=== PATIENT | female | born 1990 | race Two or more races ===

== ENCOUNTER 2020-04-02 21:32 | Emergency (ER) | payer OTHER, SELFPAY ==
[2020-04-02 21:42] VITALS: BP 132/77; PULSE 105; RESP 16; TEMP 36.8; O2SAT 99; BMI 30.2
--- NOTE | 2020-04-02 22:01 | XR_ITS ---
EXAMINATION: XR ABDOMEN KUB CLINICAL INDICATION: Evaluate stool burden COMPARISON: KUB 01/18/2020 TECHNIQUE: AP view of the abdomen. FINDINGS: The left ureteral stent with its proximal end in the kidney pelvis and the distal end in the bladder. There are 2 radiopaque densities seen in the midpole left kidney similar to previous study. There is moderate stool in the colon without distention. No organomegaly. There is mild levoscoliosis at dorsolumbar junction. IMPRESSION: Mild constipation. No change in left internal ureteral stent and 2 small radiopaque disc series in the midpole left kidney from 01/18/2020. Mild levoscoliosis at dorsolumbar junction, slightly more prominent than 01/18/2020.
--- NOTE | 2020-04-02 22:07 | ED.ABDPAIN ---
HPI - Abdominal Pain General Chief Complaint: Abdominal Pain Stated Complaint: nausea constipation Time Seen by Provider: 04/02/20 21:51 Source: patient Mode of arrival: ambulatory Limitations: no limitations History of Present Illness HPI narrative: 29-year-old female with a past history of renal colic here with abdominal pain for last 2 weeks. The patient tells me she has pain in the middle of her abdomen and is intermittent. She has some associated nausea with no vomiting at times. She also complaining of constipation and only able to have small hard bowel movements at times. Taking prune juice with no relief. No fevers, chills or urinary symptoms. MD elicited complaint: abdominal pain Onset (ago): week(s) (2 weeks ) Pain Consistency: intermittent Location: diffuse Severity: mild Quality: cramping Radiation: none Migration to: no migration Exacerbating factors: nothing Relieving factors: nothing Associated symptoms: denies other symptoms Related Data Previous Rx's Medication Instructions Recorded ketorolac 10 mg PO Q8H PRN 1 Days #10 tab 04/03/20 levofloxacin 750 mg PO DAILY 4 Days #4 tab 04/03/20 tamsulosin [Flomax] 0.4 mg PO DAILY #10 cap 04/03/20 Allergies Allergy/AdvReac Type Severity Reaction Status Date / Time codeine [CODEINE] Allergy Severe URINARY Unverified 03/01/20 18:04 RETENTION codeine AdvReac Unknown Uncoded 12/01/13 00:00 Review of Systems Review of Systems Yes all other systems are reviewed and are negative Constitutional: Reports no additional constitutional complaints, Denies body ache(s), Denies chills, Denies fever(s), Denies headache(s) and Denies weakness Eyes: Reports no additional eye complaints and Denies change in vision Reports system reviewed and no additional complaints, except as documented, Denies dizziness, Denies headache(s), Denies nasal congestion, Denies nasal discharge and Denies neck pain Cardiovascular: Reports no additional cardiovascular complaints, Denies chest pain, Denies leg edema and Denies dyspnea Respiratory: Reports no additional respiratory complaints, Denies cough and Denies dyspnea Gastrointestinal: Reports no additional gastrointestinal complaints, Reports abdominal pain, Reports constipation, Denies diarrhea, Reports nausea and Denies vomiting Genitourinary: Reports no additional female genitourinary complaints and Denies urinary incontinence Musculoskeletal: Reports no additional musculoskeletal complaints, Denies back pain, Denies arthralgias, Denies joint swelling, Denies neck pain, Denies numbness and Denies tingling Skin/Breast: Reports system reviewed and no additional complaints, except as docu and Denies rash Reports system reviewed and no additional complaints, except as documented, Denies Abnormal speech present, Denies dizziness, Denies headache(s), Denies numbness, Denies tingling and Denies weakness Physical Exam Vital Signs: Vital Signs: Vital Signs Temp Pulse Resp BP Pulse Ox 04/03/20 01:12 98.4 F 97 16 106/64 99 04/02/20 23:58 98.3 F 97 18 110/66 99 04/02/20 21:42 98.2 F 105 H 16 132/77 99 Body Mass Index 30.2 Const: General: cooperative, healthy appearing, comfortable and no acute distress Orientation/consciousness: patient oriented x3 Limitations: no limitations HENMT: Head: Yes normal to inspection Ears: hearing grossly normal bilaterally General nose exam: Normal external nose present Face and sinus: Yes normal facial exam Mouth: Normal oral and palatal mucosa present Throat: Yes posterior oropharynx normal Eyes: General: appearance normal, both eyes and all related structures Pupils: Equal, round and reactive pupils present Neck: Neck: Yes normal visual inspection Chest: Chest palpation & inspection: normal inspection of the chest Resp: Effort & Inspection: normal respiratory effort Auscultation: clear to auscultation bilaterally Cardio: Rate: regular rate Rhythm: regular rhythm Peripheral pulses: Peripheral pulses 2+ throughout GI: Other: no focal tenderness Inspection: Yes normal to inspection Palpation (GI): Soft to palpation and nontender Auscultation: normal bowel sounds Back/Spine/Pelvis: Thoracic/Lumbar Spine: thoracic and lumbar spine normal to inspection Skin: General skin exam: no rashes or lesions noted Neuro: General: patient oriented x3, no focal motor deficits and normal sensation to monofilament Cranial nerves: Yes Equal, round and reactive pupils present Cognition (Neuro): normal cognition Speech: No Abnormal speech present Gait exam (Neuro): Normal gait present Motor exam (neuro): 5/5 motor strength present throughout Extrem: General: Yes normal to inspection Course Course Course Narrative: 29-year-old female here with abdominal pain, constipation and nausea. Will check labs, UA, urine and KUB. 0000- UA shows microscopic hematuria and leuks, KUB shows moderate constipation. Labs show mild leukocytosis with no shift. Will check CT abdomen and pelvis. 0130- CT shows left ureteral stent with moderate hydronephrosis which appears unchanged from previous. Patient was given a dose of antibiotics here in the emergency department for presumed UTI. Will refer her back to urology for follow-up due to pain. Reviewed worrisome signs and symptoms of when to return to the emergency department. Comfortable discharge home. MDM - Abdominal Pain Medical Records Attestation: I reviewed the patient's medical records. Lab Data Attestation: I reviewed the patient's lab results. Result diagrams: 04/02/20 22:21 04/02/20 22:21 Labs: Lab Results 04/02/20 04/02/20 04/02/20 Range/Units 22:21 22:21 22:21 WBC 13.9 H (4.8-10.8) X10*3/uL RBC 4.28 (4.20-5.50) X10*6/uL Hgb 11.5 L (12.0-16.0) g/dl Hct 37.0 (37-47) % MCV 86.4 (80-98) fL MCH 26.9 L (27.0-33.0) pg MCHC 31.1 (31.0-35.0) g/dl RDW 13.4 (11.0-16.0) % Plt Count 415 H (160-400) X10*3/uL MPV 9.2 L (9.4-12.3) fL Immature Gran % (Auto) 0.4 (0.0-0.4) % Neut % (Auto) 66.5 (45-73) % Lymph % (Auto) 24.0 (20-40) % Lenoir % (Auto) 5.8 (2-11) % Eos % (Auto) 2.8 (0-4) % Baso % (Auto) 0.5 (0-2) % Lymph # (Auto) 3.3 (1.2-4.9) X10*3/uL [place] # (Auto) 0.8 (0.1-1.2) X10*3/uL Eos # (Auto) 0.4 (0.0-0.4) X10*3/uL Baso # (Auto) 0.1 (0.0-0.2) X10*3/uL Abs Immat Gran (auto) 0.05 H (0.00-0.03) X10*3/uL Absolute Neuts (auto) 9.2 H (2.0-8.3) X10*3/uL Absolute Nucleated RBC 0.000 (0.0-0.012) X10*3/uL Nucleated RBC % (auto) 0.0 (0.0-0.2) /100WBC Hold Blue Top SEE NOTE Sodium 136 (135-145) mmol/L Potassium 4.1 (3.3-5.1) mmol/l Chloride 103 (96-108) mmol/L Carbon Dioxide 25 (22-29) mmol/L Anion Gap 12 (12-20) BUN 15 (9-16) mg/dL Creatinine 0.68 (0.5-1.4) mg/dL Estim Creat Clear Calc 108.7 Estimated GFR > 60 Random Glucose 93 (60-115) mg/dL Calcium 8.5 (8.4-10.2) mg/dL Magnesium 1.9 (1.6-2.6) mg/dL Total Bilirubin 0.5 (0.0-1.0) mg/dL Direct Bilirubin 0.2 (0.0-0.5) mg/dL AST 17 (5-31) U/L ALT 20 (0-31) U/L Alkaline Phosphatase 75 (39-117) U/L Total Protein 7.3 (6.5-8.0) g/dL Albumin 4.1 (3.5-5.0) g/dL Urine Color Urine Appearance Urine pH (5.0-8.0) Ur Specific Cotton (1.005-1.025) Urine Protein (NEG-TRACE) MG/DL Urine Glucose (UA) (NEG) MG/DL Urine Ketones (NEG) MG/DL Urine Blood (NEG) Urine Nitrite (NEG) Ur Leukocyte Esterase (NEG) Urine RBC (0) /HPF Urine WBC (0-4) /HPF Ur Squamous Epith Cells /LPF Urine Bacteria /LPF Urine Test (NEGATIVE) 04/02/20 Range/Units 22:45 WBC (4.8-10.8) X10*3/uL RBC (4.20-5.50) X10*6/uL Hgb (12.0-16.0) g/dl Hct (37-47) % MCV (80-98) fL MCH (27.0-33.0) pg MCHC (31.0-35.0) g/dl RDW (11.0-16.0) % Plt Count (160-400) X10*3/uL MPV (9.4-12.3) fL Immature Gran % (Auto) (0.0-0.4) % Neut % (Auto) (45-73) % Lymph % (Auto) (20-40) % Lenoir % (Auto) (2-11) % Eos % (Auto) (0-4) % Baso % (Auto) (0-2) % Lymph # (Auto) (1.2-4.9) X10*3/uL [place] # (Auto) (0.1-1.2) X10*3/uL Eos # (Auto) (0.0-0.4) X10*3/uL Baso # (Auto) (0.0-0.2) X10*3/uL Abs Immat Gran (auto) (0.00-0.03) X10*3/uL Absolute Neuts (auto) (2.0-8.3) X10*3/uL Absolute Nucleated RBC (0.0-0.012) X10*3/uL Nucleated RBC % (auto) (0.0-0.2) /100WBC Hold Blue Top Sodium (135-145) mmol/L Potassium (3.3-5.1) mmol/l Chloride (96-108) mmol/L Carbon Dioxide (22-29) mmol/L Anion Gap (12-20) BUN (9-16) mg/dL Creatinine (0.5-1.4) mg/dL Estim Creat Clear Calc Estimated GFR Random Glucose (60-115) mg/dL Calcium (8.4-10.2) mg/dL Magnesium (1.6-2.6) mg/dL Total Bilirubin (0.0-1.0) mg/dL Direct Bilirubin (0.0-0.5) mg/dL AST (5-31) U/L ALT (0-31) U/L Alkaline Phosphatase (39-117) U/L Total Protein (6.5-8.0) g/dL Albumin (3.5-5.0) g/dL Urine Color YELLOW Urine Appearance CLOUDY Urine pH 6.0 (5.0-8.0) Ur Specific Cotton 1.015 (1.005-1.025) Urine Protein 1+ H (NEG-TRACE) MG/DL Urine Glucose (UA) NEG (NEG) MG/DL Urine Ketones NEG (NEG) MG/DL Urine Blood 3+ H (NEG) Urine Nitrite NEG (NEG) Ur Leukocyte Esterase 1+ H (NEG) Urine RBC 50-75 H (0) /HPF Urine WBC 1-4 (0-4) /HPF Ur Squamous Epith Cells TRACE /LPF Urine Bacteria TRACE /LPF Urine Test NEGATIVE (NEGATIVE) Imaging Data CT scan - abdomen: Attestation: I personally reviewed and interpreted this imaging study as follows: My impression: IMPRESSION: 1. Left ureteral stent in place. Mild to moderate left hydronephrosis as well as stranding around the renal pelvis and proximal to mid ureter, similar to prior. 2. Redemonstrated multiple bilateral renal calculi. No right hydronephrosis. Radiologist's impression: EXAMINATION: CT ABDOMEN AND PELVIS WITHOUT CONTRAST CLINICAL INFORMATION: Hematuria, abdominal pain, history of renal colic with stent COMPARISON: 01/07/2020 TECHNIQUE: Multidetector volumetric imaging was performed from the superior aspect of the liver through the pubic symphysis. Sagittal and coronal reformatted images were obtained on the technologist's workstation. This CT examination was performed using dose optimization techniques as appropriate, variously including the following: *Automated exposure control *Adjustment of mA and/or kV according to patient size (this includes techniques or standardized protocols for targeted exams where dose is matched to indication/reason for exam; i.e. extremities or head) *Use of iterative reconstruction technique DLP: 543 mGy-cm FINDINGS: LUNG BASES: The visualized lung bases are unremarkable. LIVER, GALLBLADDER, AND BILIARY TREE: The liver is normal in size, shape, and attenuation. No focal hepatic lesion or biliary ductal dilatation is present. The gallbladder is unremarkable with no evidence of radiopaque gallstones, gallbladder wall thickening, or obvious pericholecystic inflammatory changes. PANCREAS: Unremarkable. SPLEEN: Unremarkable. ADRENAL GLANDS: Unremarkable. KIDNEYS AND URETERS: Left double-J ureteral stent is present with the upper loop in the renal pelvis and the distal loop in the bladder. There is mild to moderate left hydronephrosis with stranding around the renal pelvis and proximal to mid ureter; overall appearance is similar to prior. There are numerous scattered calculi throughout the bilateral kidneys measuring up to 4 mm on the left. No right hydronephrosis. BLADDER: Unremarkable. GASTROINTESTINAL TRACT: The small and large bowel are unremarkable. The appendix appears nondilated. No free fluid or free air is seen. ABDOMINAL WALL: No significant hernia is appreciated. LYMPH NODES: No lymphadenopathy is seen, though assessment is limited in the absence of intravenous contrast. VASCULAR: Unremarkable. PELVIC VISCERA: Unremarkable. OSSEOUS STRUCTURES: Redemonstrated asymmetric sclerosis along the right iliac bone near the sacroiliac joint. IMPRESSION: 1. Left ureteral stent in place. Mild to moderate left hydronephrosis as well as stranding around the renal pelvis and proximal to mid ureter, similar to prior. 2. Redemonstrated multiple bilateral renal calculi. No right hydronephrosis. Discharge Plan Discharge Clinical Impression: Hydronephrosis, Abdominal pain, UTI (urinary tract infection) Patient Disposition: Home, Self-Care Instructions: Urinary Tract Infection in Women (ED), Abdominal Pain (ED), Hydronephrosis (ED) Additional Instructions: Call Dr Buenrostro tomorrow Stay well hydrated Prescriptions: New tamsulosin [Flomax] 0.4 mg capsule 0.4 mg PO DAILY Qty: 10 RF: 0 ketorolac 10 mg tablet 10 mg PO Q8H PRN (Reason: pain) 1 Days Qty: 10 RF: 0 levofloxacin 750 mg tablet 750 mg PO DAILY 4 Days Qty: 4 RF: 0 Referrals: Gilberto Buenrostro MD [Physician] - 2 days Stand Alone Forms: Work/School Release Interventions: ED Discharge Assessment Last Done: 04/03/20 01:23 Discharge Date/Time: 04/03/20 01:29 [facility] Past Medical History Attestation statement: The following information was validated with the patient. Source: obtained from family and nursing notes reviewed Medical History Kidney stones Social History Social History Alcohol intake: never Smoked in Last 30 Days: No Use of substances other than those prescribed or required for medical reasons: No Any prior treatment program specific to substance use: No Advance Directives: No Advance Directives Information Provided: Yes
[2020-04-02 22:29] LABS: Basophils Absolute Auto 0.1 X10*3/uL (0.0-0.2); Basophils Percent Auto 0.5 % (0-2); Eosinophils Absolute Auto 0.4 X10*3/uL (0.0-0.4); Eosinophils Percent Auto 2.8 % (0-4); Hemoglobin 11.5 g/dl (12.0-16.0); Imm Gran Abs Auto 0.05 X10*3/uL (0.00-0.03); Imm Gran Pct Auto 0.4 % (0.0-0.4); Lymphocytes Absolute Auto 3.3 X10*3/uL (1.2-4.9); MANUAL DIFF FLAG NO; Mean Corpuscular HGB Conc 31.1 g/dl (31.0-35.0); Mean Corpuscular Hemoglobin 26.9 pg (27.0-33.0); Mean Corpuscular Volume 86.4 fL (80-98); Mean Platelet Volume 9.2 fL (9.4-12.3); Monocytes Absolute Auto 0.8 X10*3/uL (0.1-1.2); Monocytes Percent Auto 5.8 % (2-11); Neutrophils Absolute Auto 9.2 X10*3/uL (2.0-8.3); Neutrophils Percent Auto 66.5 % (45-73); Platelet Count 415 X10*3/uL (160-400); Red Blood Count 4.28 X10*6/uL (4.20-5.50); Red Cell Distribution Width 13.4 % (11.0-16.0); White Blood Count 13.9 X10*3/uL (4.8-10.8)
[2020-04-02 22:51] LABS: Glucose Urine UA NEG (NEG); Leukocyte Esterase Urine 1+ (NEG); Nitrite Urine NEG (NEG); Specific Gravity - Urine 1.015 (1.005-1.025); Urine Blood 3+ (NEG); Urine Ketones NEG (NEG); Urine Protein 1+ MG/DL (NEG-TRACE)
[2020-04-02 22:52] LABS: Appearance Urine CLOUDY; Color Urine YELLOW
[2020-04-02 23:03] LABS: Alanine Aminotransferase 20 U/L (0-31); Albumin Level 4.1 g/dL (3.5-5.0); Alkaline Phosphatase 75 U/L (39-117); Anion Gap 12 (12-20); Aspartate Amino Transferase 17 U/L (5-31); Bilirubin Direct 0.2 mg/dL (0.0-0.5); Bilirubin Total 0.5 mg/dL (0.0-1.0); Blood Urea Nitrogen 15 mg/dL (9-16); Calcium 8.5 mg/dL (8.4-10.2); Carbon Dioxide 25 mmol/L (22-29); Chloride 103 mmol/L (96-108); Creatinine Clr Calc Pharmacy 108.7; Estimated Glomerular Filt Rate > 60; Glucose Random 93 mg/dL (60-115); Magnesium 1.9 mg/dL (1.6-2.6); Potassium 4.1 mmol/l (3.3-5.1); Sodium 136 mmol/L (135-145); Total Protein 7.3 g/dL (6.5-8.0)
[2020-04-02 23:05] LABS: Bacteria Urine TRACE /LPF; RBC Urine 50-75 /HPF (0); Squamous Epithelial Cell Urine TRACE /LPF
[2020-04-02 23:06] LABS: UPreg QC Valid YES; Urine Pregnancy NEGATIVE (NEGATIVE)
[2020-04-02 23:58] VITALS: BP 110/66; PULSE 97; RESP 18; TEMP 36.8; O2SAT 99
[2020-04-02] MEDS: Ketorolac Tromethamine 60 MG/2 ML VIAL IM (23:58)
--- NOTE | 2020-04-03 | CT_ITS ---
EXAMINATION: CT ABDOMEN AND PELVIS WITHOUT CONTRAST CLINICAL INFORMATION: Hematuria, abdominal pain, history of renal colic with stent COMPARISON: 01/07/2020 TECHNIQUE: Multidetector volumetric imaging was performed from the superior aspect of the liver through the pubic symphysis. Sagittal and coronal reformatted images were obtained on the technologist's workstation. This CT examination was performed using dose optimization techniques as appropriate, variously including the following: *Automated exposure control *Adjustment of mA and/or kV according to patient size (this includes techniques or standardized protocols for targeted exams where dose is matched to indication/reason for exam; i.e. extremities or head) *Use of iterative reconstruction technique DLP: 543 mGy-cm FINDINGS: LUNG BASES: The visualized lung bases are unremarkable. LIVER, GALLBLADDER, AND BILIARY TREE: The liver is normal in size, shape, and attenuation. No focal hepatic lesion or biliary ductal dilatation is present. The gallbladder is unremarkable with no evidence of radiopaque gallstones, gallbladder wall thickening, or obvious pericholecystic inflammatory changes. PANCREAS: Unremarkable. SPLEEN: Unremarkable. ADRENAL GLANDS: Unremarkable. KIDNEYS AND URETERS: Left double-J ureteral stent is present with the upper loop in the renal pelvis and the distal loop in the bladder. There is mild to moderate left hydronephrosis with stranding around the renal pelvis and proximal to mid ureter; overall appearance is similar to prior. There are numerous scattered calculi throughout the bilateral kidneys measuring up to 4 mm on the left. No right hydronephrosis. BLADDER: Unremarkable. GASTROINTESTINAL TRACT: The small and large bowel are unremarkable. The appendix appears nondilated. No free fluid or free air is seen. ABDOMINAL WALL: No significant hernia is appreciated. LYMPH NODES: No lymphadenopathy is seen, though assessment is limited in the absence of intravenous contrast. VASCULAR: Unremarkable. PELVIC VISCERA: Unremarkable. OSSEOUS STRUCTURES: Redemonstrated asymmetric sclerosis along the right iliac bone near the sacroiliac joint. IMPRESSION: 1. Left ureteral stent in place. Mild to moderate left hydronephrosis as well as stranding around the renal pelvis and proximal to mid ureter, similar to prior. 2. Redemonstrated multiple bilateral renal calculi. No right hydronephrosis.
--- NOTE | 2020-04-03 00:02 | PC.NURSE ---
PT MEDICATED PER 12/22 FLANK PAIN. PLAN FOR DRY CT SCAN. PT IN NAD
--- NOTE | 2020-04-03 00:51 | PC.NURSE ---
pt states improvement in pain from toradol im injection
[2020-04-03 01:12] VITALS: BP 106/64; PULSE 97; RESP 16; TEMP 36.9; O2SAT 99
--- NOTE | 2020-04-03 01:12 | PC.NURSE ---
COLLAR CLEARED. PT REFUSING HAND X RAYS
[2020-04-03] MEDS: levoFLOXacin 750 MG TABLET PO (01:27)
== END 2020-04-03 01:29 | disposition home or self-care (01) ==
PROVIDERS: Nurse Practitioner Family; Emergency Provider Emergency Medicine; PCP Internal Medicine
DX: N39.0 Urinary tract infection, site not specified (principal); N13.6 Pyonephrosis; K59.00 Constipation, unspecified; Z79.899 Other long term (current) drug therapy
CPT/HCPCS: 36415; 74018; 74176; 80048; 80076; 81001; 81025; 83735; 85025; 87086; 96372; 99284; 99285; J1885

== ENCOUNTER 2020-04-17 07:25 | Day surgery (SDC) | payer OTHER, SELFPAY ==
--- NOTE | 2020-04-16 11:58 | HO.ANESPROP2 ---
Documented by User: Elisha Rush 04/16/20 11:59 HPI - Anesthesia Eval Consult details Narrative: 29yo F for Cystoscopy & Uretreal Stent Removal PMFSH Past Medical History Medical History Kidney stones Surgical History Surgical History (Updated 04/16/20 @ 13:35 by Charity Persaud) Hx of section Hx of tonsillectomy Hx of tubal ligation Social History Social History Alcohol intake: never Smoking Status: Never smoker Second Hand Smoke Exposure: No Use of substances other than those prescribed or required for medical reasons: No Advance Directives: No Advance Directives Information Provided: No Advance Directives on File: No Meds Allergies Allergy/AdvReac Type Severity Reaction Status Date / Time codeine [CODEINE] Allergy Severe URINARY Verified 04/17/20 07:45 RETENTION Home Medications Medication Instructions Recorded Confirmed Type No Known Home Meds 04/17/20 04/17/20 History Exam Exam Date and Time: April 16, 2020 1158 Pertinent Lab Results Pertinent Lab Results: Laboratory Tests 04/02/20 04/02/20 22:21 22:21 WBC 13.9 H RBC 4.28 Hgb 11.5 L Hct 37.0 Plt Count 415 H Sodium 136 Potassium 4.1 Chloride 103 BUN 15 Creatinine 0.68 Assessment and Plan Assessment Anesthesia Assessment: Chart Reviewed Documented by User: Gonzalo Mustafa 04/17/20 08:20 [facility] Past Medical History Medical History Kidney stones Surgical History Surgical History (Updated 04/16/20 @ 13:35 by Charity Persaud) Hx of section Hx of tonsillectomy Hx of tubal ligation Social History Social History Alcohol intake: never Smoking Status: Never smoker Second Hand Smoke Exposure: No Use of substances other than those prescribed or required for medical reasons: No Advance Directives: No Advance Directives Information Provided: No Advance Directives on File: No Meds Allergies Allergy/AdvReac Type Severity Reaction Status Date / Time codeine [CODEINE] Allergy Severe URINARY Verified 04/17/20 07:45 RETENTION Home Medications Medication Instructions Recorded Confirmed Type No Known Home Meds 04/17/20 04/17/20 History Exam Airway Mallampati Class: II TM Dist: >3cm Neck ROM: Full Heart: RRR Assessment and Plan Assessment Anesthesia Assessment: Anesthesia Plan Discussed Final Anesthetic Review NPO: Yes ASA Class: I Final Preanesthetic Review: Consent Obtained/Reviewed Anesthetic Plan Anesthetic Plan: GA Disposition: Standard PACU
[2020-04-16 13:28] VITALS: BMI 27.9
[2020-04-17 07:50] VITALS: BP 115/74; PULSE 97; RESP 16; TEMP 36.3; O2SAT 98
--- NOTE | 2020-04-17 07:59 | PC.NURSE ---
patient is a tubal ligation. no urine needed.
--- NOTE | 2020-04-17 07:59 | MHC.SHP ---
Pre-Procedural Eval Section B Chief Complaint: Kidney Calculus Details of Present Illness: Left stent from prior procedure in January Relevant Family History (Specify if Yes): No Relevant Social History: None Present Medications: see Short Stay Collaborative assessment Medical History: No relevant PMH History of Previous Operations: Relevant previous surgery/procedure and date(s) Allergies: Allergies Allergy/AdvReac Type Severity Reaction Status Date / Time codeine [CODEINE] Allergy Severe URINARY Verified 04/17/20 07:45 RETENTION Review of Systems Sugical H&P ROS: Negative: Constitution, Cardiovascular, Respiratory, Neurological, Psychiatric, Hem-Onc, Allergic/Immunologic, Gastrointestinal, Genitourinary, Musculoskeletal, Integumentary, Endocrine and Eyes/Ears/Nose/Throat Exam Surgical H&P Exam: Normal: HEENT, Normal: Heart, Normal: Lungs, Normal: Extremities, Normal: Abdomen, Normal: Skin and Normal: Neurological Plan Diagnosis/Plan: Unchanged Patient has been examined and remains a candidate for the planned procedure
[2020-04-17] MEDS: levoFLOXacin 500 MG TABLET PO (08:07)
[2020-04-17] MEDS: Lactated Ringers 1,000 ML 100 ML IVCONT (08:07)
--- NOTE | 2020-04-17 08:47 | PM.OP ---
Brief Operative Note Date of procedure: 04/17/20 Pre-op diagnosis: left reteained stent Post-op diagnosis: same Procedure: cystoscopy left stent removal Implants: none Surgeon: Gilberto Buenrostro MD Anesthesia: MAC Estimated blood loss (mL): 0 Pathology: none sent Condition: stable Disposition: same day
[2020-04-17 08:54] VITALS: BP 92/52; PULSE 91; RESP 16; TEMP 36.1; O2SAT 94
[2020-04-17] MEDS: Ketorolac Tromethamine 15 MG/ML VIAL IVPUSH (09:08)
[2020-04-17] MEDS: Phenazopyridine HCL 100 MG TABLET PO (09:08)
[2020-04-17 09:09] VITALS: BP 100/60; PULSE 69; RESP 16; O2SAT 97
[2020-04-17 09:24] VITALS: BP 102/61; PULSE 80; RESP 16; O2SAT 97
--- NOTE | 2020-04-17 09:39 | HO.POSTANES ---
Post Anesthesia Evaluation Post Anesthesia Evaluation Vital Signs: Vital Signs Temp Pulse Resp BP Pulse Ox 04/17/20 09:24 96.9 F 80 16 102/61 97 04/17/20 09:09 69 16 100/60 97 04/17/20 08:54 96.9 F 91 16 92/52 L 94 04/17/20 07:50 97.3 F 97 16 115/74 98 Anesthesia: Monitored Mental Status: Awake Pain Control: Satisfactory Nausea/Vomiting: None Hydration: Adequate Anesthesia-Related Issues: No Anes. Related Issues
--- NOTE | 2020-04-17 10:35 | W.PM.OPN ---
Operative Note Operative Note Narrative: PreOperative Diagnosis: Left retained ureteric stent Post Operative Diagnosis: left retained ureteric stent Procedure: cystoscopy removal of left stent Surgeon: Dr Gilberto Buenrostro Anesthesia: sedation Indications for procedure: stent in place left side since October Procedure: after informed consent was verified patient brought to operating room placed in a supine position. Anesthesia administered per protocol. Patient placed in modified dorsal lithotomy position and prepped and draped in sterile fashion. Safety pause time-out performed. Antibiotics have been given. Cystoscope inserted per urethra without difficulty. Stent seen. Stent grasped and removed. There was calcification on the stent. She tolerated the procedure well was transferred in stable condition to the recovery area No drain left
== END 2020-04-17 10:10 | disposition home or self-care (01) ==
PROVIDERS: PCP Internal Medicine; Visit Provider Urology
PROC: (CPT 52310; principal; 2020-04-17 09:00)
DX: Z46.6 Encounter for fitting and adjustment of urinary device (principal); Z87.442 Personal history of urinary calculi; Z88.8 Allergy status to other drugs, medicaments and biological substances; Z96.0 Presence of urogenital implants
CPT/HCPCS: 52310; J1885; J2250; J2405; J3010

== ENCOUNTER 2020-05-30 10:08 | Outpatient (REF) | payer OTHER, SELFPAY | END 2020-05-30 10:09 | disposition home or self-care (01) | LOC: HO.LAB 10:08 | PROVIDERS: Visit Provider Internal Medicine | DX: Z20.828 Contact with and (suspected) exposure to other viral communicable diseases (principal) | CPT/HCPCS: 99212; C9803; U0003 ==

== ENCOUNTER 2021-03-07 12:38 | Outpatient (REF) | payer OTHER, SELFPAY | END 2021-03-07 12:39 | disposition home or self-care (01) | LOC: HO.LAB 12:38 | PROVIDERS: PCP Internal Medicine; Visit Provider Internal Medicine | DX: Z20.822 Contact with and (suspected) exposure to COVID-19 (principal) | CPT/HCPCS: C9803; U0003; U0005 ==

== ENCOUNTER 2021-12-03 18:01 | Emergency (ER) | payer OTHER, SELFPAY ==
--- NOTE | ~2021-12-03 | XR_ITS ---
EXAMINATION: XR CHEST CLINICAL INFORMATION: Cough. COMPARISON: Chest x-ray 09/18/2017 TECHNIQUE: Frontal view of the chest was obtained. 9:31 PM FINDINGS: No significant abnormality is noted involving the heart, lungs, mediastinum, bony thorax or soft tissues. XR/XR chest 1V IMPRESSION: Unremarkable examination.
[2021-12-03 19:14] VITALS: BP 136/74; PULSE 117; RESP 18; TEMP 37; O2SAT 98; BMI 33.0
[2021-12-03 19:45] LABS: COVID-19 Test Negative (Negative); IDNOW Serial# 55D5AD1C; Influenza A Negative (Negative); Influenza B2 Negative (Negative)
[2021-12-03 22:39] VITALS: BP 104/69; PULSE 113; RESP 18; O2SAT 98
[2021-12-03 23:56] LABS: Strep A Nucleic Acid Negative (Negative)
--- NOTE | 2021-12-04 00:10 | ED.GENADULT ---
HPI - General Adult General Chief complaint: General Medical Stated complaint: flu like symptoms Time Seen by Provider: 12/03/21 23:36 Source: patient Mode of arrival: ambulatory History of Present Illness HPI narrative: 30-year-old female with no significant past medical history presenting to the ED complaining of headache, sore throat, ear pain, dry cough, and myalgias x2 days. Denies chest pain, shortness of breath, recent travel, sick contacts, abdominal pain, nausea/vomiting, pedal edema Onset (ago): day(s) Related Data Previous Rx's Medication Instructions Recorded benzonatate 100 mg capsule 100 mg PO TID PRN cough #14 caps 12/04/21 fluticasone propionate 50 2 spray intranasal DAILY #16 grams 12/04/21 mcg/actuation nasal spray,suspension (Flonase Allergy Relief) Allergies Allergy/AdvReac Type Severity Reaction Status Date / Time codeine [CODEINE] Allergy Severe URINARY Verified 04/17/20 07:45 RETENTION Review of Systems Review of Systems: Constitutional: No Fever, No Chills ENT/Mouth: No Ear Pain, + Nasal Congestion, No Sinus Pain, No Hoarseness, + sore throat, + Rhinorrhea, No Swallowing Difficulty Cardiovascular: No Chest Pain, No SOB Respiratory: + Cough, No Sputum, No Wheezing Gastrointestinal: No Nausea, No Vomiting, No Diarrhea, No Constipation, No Abdominal pain Genitourinary: No Dysuria, No Urinary Frequency, No Urgency, No Flank Pain Musculoskeletal: No joint pain, + Myalgias, No Joint Swelling Skin: No Skin Lesions, No rash Neuro: No Weakness, No Numbness, No Paresthesias, +headache Yes all other systems are reviewed and are negative [facility] Past Medical History Attestation statement: The following information was validated with the patient. Surgical History Hx of section Hx of tonsillectomy Hx of tubal ligation Social History Social History Alcohol intake: never Second Hand Smoke Exposure: No Advance Directives: No Advance Directives Information Provided: No Physical Exam ED Vital Signs: Vital Signs - 24 hr 12/03/21 19:14 12/03/21 22:39 12/04/21 00:22 Temperature 98.6 F 98.4 F Pulse Rate 117 H 113 H Respiratory Rate 18 18 Blood Pressure 136/74 104/69 Pulse Oximetry 98 98 Oxygen Delivery Method Room Air BMI result Body Mass Index 33.0 Const General: cooperative, healthy appearing, no acute distress, alert, awake and Physically active Orientation/consciousness: patient oriented x3 Limitations: no limitations HENMT Head: Yes normal to inspection and Yes atraumatic Ears: hearing grossly normal bilaterally, external ears normal, TM's normal bilaterally and mastoids normal General nose exam: Normal external nose present Face and sinus: Yes normal facial exam Throat: Yes tonsils normal, Yes uvula midline, No abnormal tonsil, Yes posterior oropharynx abnormal (Mildly erythematous), No uvula laterally displaced and No uvular edema Eyes General: appearance normal, both eyes and all related structures EOM: EOMs intact bilaterally Neck Other: + bilateral submandibular lymphadenopathy Neck: Yes normal visual inspection and Yes no meningeal signs Resp Effort & Inspection: normal respiratory effort and no respiratory distress Auscultation: clear to auscultation bilaterally, no crackles, no rales, no rhonchi and no wheezes Cardio Rate: regular rate Heart sounds: S1 normal heart sound present and S2 normal heart sound present Skin Rashes: no rashes Wounds: no wounds Neuro General: patient oriented x3, tone normal and no meningeal signs Gait exam (Neuro): Normal gait present Extrem General: Yes normal to inspection and Yes no pedal edema Course Course Course Narrative: -COVID-19 and influenza negative -chest x-ray unremarkable -rapid strep negative > results discussed with patient including worrisome signs and symptoms and strict return precautions and recommended follow-up with PCP Medical Decision Making MDM Narrative Medical decision making narrative: 30-year-old female with no significant past medical history presenting to the ED complaining of headache, sore throat, ear pain, dry cough, and myalgias x2 days. On exam tachycardic likely from coughing, NAD/nontoxic appearing, lungs CTA, mild submandibular lymphadenopathy, TMs and oropharynx without evidence of otitis or FILAMENT CUTTER/ strep throat. Concern for viral illness Plan: COVID-19/influenza testing, rapid strep, CXR Medical Records Medical records reviewed: Yes I reviewed the patient's medical records. Lab Data Lab results reviewed: Yes I reviewed the patient's lab results. Labs: Lab Results 06/12/03/21 12/03/21 Range/Units 19:21 19:21 23:44 COVID-19 (HAIDER) Negative (Negative) COVID-19 Clin Com See Note Influenza Type A (SHIRA) Negative (Negative) Influenza Type B (SHIRA) Negative (Negative) Influenza A & B Note See Note S. pyogenes GrpA SHIRA Negative (Negative) Discharge Plan Discharge Clinical Impression: Acute viral syndrome, Pharyngitis Patient Disposition: Home, Self-Care Instructions: Pharyngitis (ED), Viral Syndrome (ED) Additional Instructions: You tested negative for COVID-19, the flu, and strep throat. Her chest x-ray was unremarkable Lorraine lewis for cough, take as needed Flonase is a nasal decongestion You may also buy [id number] numbing throat spray for symptomatic relief. Also gargle with warm salt water. Please have close follow-up with her doctor. Take Tylenol and Motrin. If symptoms persist or worsen return to the emergency department or not call 911 Prescriptions: New benzonatate 100 mg capsule 100 mg PO TID PRN (Reason: cough) Qty: 14 0RF fluticasone propionate [Flonase Allergy Relief] 50 mcg/actuation spray,suspension 2 spray intranasal DAILY Qty: 16 0RF Rx Instructions: administer into each nostril Referrals: Physician,Unknown J [Primary Care Provider] - 2 days Stand Alone Forms: Work/School Release Interventions: ED Discharge Assessment Last Done: 12/04/21 00:34 Discharge Date/Time: 12/04/21 00:35
[2021-12-04] MEDS: Benzonatate 100 MG CAPSULE 200 MG PO (00:18)
[2021-12-04] MEDS: Lidocaine HCl Viscous 2 % 15 ML SOLUTION 5 ML MUCOUS MEM (00:19)
[2021-12-04 00:22] VITALS: TEMP 36.9
== END 2021-12-04 00:35 | disposition home or self-care (01) ==
PROVIDERS: Physician Assistant; Emergency Provider Internal Medicine
DX: B34.9 Viral infection, unspecified (principal); J02.9 Acute pharyngitis, unspecified; R06.02 Shortness of breath; R05.9 Cough, unspecified; Z20.822 Contact with and (suspected) exposure to COVID-19
CPT/HCPCS: 36415; 71045; 87502; 87635; 87651; 99283

== ENCOUNTER 2024-03-22 14:33 | Emergency (ER) | payer OTHER, SELFPAY | END 2024-03-22 15:45 | disposition left against medical advice (07) | PROVIDERS: Emergency Provider Emergency Medicine; PCP Internal Medicine | DX: R05.9 Cough, unspecified (principal) ==

== ENCOUNTER 2024-07-17 15:30 | Emergency (ER) | payer OTHER, SELFPAY ==
--- NOTE | ~2024-07-17 | CT_ITS ---
CLINICAL HISTORY: Flank pain. Kidney stones? CT abdomen and pelvis without contrast Comparison: CT/REG/[place] - CT ABDOMEN PELVIS WO CON - 04/03/20 00:25 EDT Findings: The lung bases are clear. Gallbladder is within normal limits. There is diffusely decreased hepatic density. There are multiple nonobstructing renal calculi measuring less than 5 mm diameter. Solid organs are otherwise within normal limits. No bowel obstruction, pneumoperitoneum, or pneumatosis. Multiple mildly prominent subcentimeter mesenteric lymph nodes are present. Pelvic contents unremarkable. Normal appendix. No acute fracture. IMPRESSION: 1. Findings consistent with mesenteric adenitis in the appropriate clinical setting. 2. Nonobstructing bilateral renal calculi. 3. Hepatic steatosis. This document has been electronically signed by: Andrade Jeter MD on 07/17/2024 20:26:58
[2024-07-17 15:46] VITALS: BP 120/82; PULSE 95; RESP 16; TEMP 36.7; O2SAT 100; BMI 32.2
--- NOTE | 2024-07-17 15:49 | ED.GENADULT ---
HPI - General Adult General Chief complaint: Abdominal Pain Stated complaint: flank pain Time Seen by Provider: 07/17/24 19:41 Source: patient Mode of arrival: ambulatory Limitations: no limitations History of Present Illness ED Provider: Devyn An DO HPI narrative: 33-year-old female with past medical history of ureteral stones requiring stent placement on the left side, last performed in 2019, presents to the ED for right-sided flank pain starting this morning with dysuria. The pain has been waxing and waning with no clear etiology. It radiates from her right flank to her right groin. She has urgency and frequency of urination as well. She denies fevers, chills, vomiting, diarrhea or any trauma to the area. She denies tobacco use, alcohol use or illicit drug use. She states the pain does feel similar to previous kidney stones. Related Data Previous Rx's ?Medication ?Instructions ?Recorded benzonatate 100 mg capsule 100 mg PO TID PRN cough #14 caps 12/04/21 fluticasone propionate 50 2 spray intranasal DAILY #16 grams 12/04/21 mcg/actuation nasal spray,suspension (Flonase Allergy Relief) Allergies Allergy/AdvReac Type Severity Reaction Status Date / Time codeine [CODEINE] Allergy Severe URINARY Verified 07/17/24 15:47 RETENTION Review of Systems Review of Systems: Yes all other systems are reviewed and are negative [facility] Past Medical History Medical History (Updated 07/17/24 @ 20:38 by Devyn An DO) Kidney stones Surgical History Hx of section Hx of tonsillectomy Hx of tubal ligation Social History Social History Alcohol intake: never Second Hand Smoke Exposure: No Advance Directives: No Advance Directives Information Provided: No Physical Exam ED Vital Signs: Vital Signs - 24 hr 07/17/24 15:46 Temperature 98.1 F Pulse Rate 95 Respiratory Rate 16 Blood Pressure 120/82 Pulse Oximetry 100 Oxygen Delivery Method Room Air BMI result Body Mass Index 32.2 Constitutional: ?Alert, oriented, speaking in full sentences HEENT: ?Normocephalic, atraumatic. ?Moist mucous membranes Eyes: ?PERRL, EOMI Neck: ?Supple, nontender Chest: ?No chest wall tenderness Respiratory: ?Lungs clear to auscultation, no increased work of breathing Cardio: ?Regular rate and rhythm, no murmur, 2+ radial and DP pulses symmetrically GI: ?Soft, nondistended, mild right lower quadrant abdominal tenderness Back: ?Normal range of motion, mild right CVA tenderness to palpation and percussion Skin: ?No rash, no lesions Neuro: ?Alert and oriented to person, place and time, moves all 4 extremities, no focal deficits Extremities: ?No swelling or tenderness, full range of motion Psych: ?Calm, alert and cooperative, appropriate behavior Course Course Course Narrative: RmE: 33-year-old female presents to ED for right flank pain and pain on urination. Patient states history of kidney stones. Patient denies any nausea or vomiting. Labs UA UCG ordered. Medical Decision Making Medical Decision Making [facility] Narrative: Patient presenting with right-sided flank pain with radiation to the groin. Differential diagnosis includes ureteral stone, less likely occult pyelonephritis, cystitis, less likely lower lobe pneumonia without cough or adventitious lung sounds, less likely appendicitis. Patient took acetaminophen prior to arrival and is provided with ketorolac IM here. She has no signs of cystitis on urinalysis and no renal insufficiency. Negative test. CT imaging for further evaluation for ureteral stone or appendicitis. CT imaging consistent with mesenteric adenitis without severe symptoms clinically. There are nonobstructing bilateral renal calculi and hepatic steatosis. This has been discussed with the patient. She is not requiring antibiotic therapy at this time nor surgery evaluation. We provided return precautions as well as instructions to continue ibuprofen and acetaminophen at home. Admission/Observation Consideration of admission/observation: Escalation of care including admission/observation considered Lab Data [facility] Lab Attestation statement: I reviewed the patient's lab results. Mild leukocytosis at 10.9, mild anemia 11.3, negative , unremarkable renal function, unremarkable remainder of CMP, urine showing small amount of blood with 11-20 RBCs, no cystitis 07/17/24 16:03 07/17/24 16:03 Labs: Lab Results 07/17/24 Range/Units 16:03 WBC 10.9 H (4.8-10.8) X10*3/uL RBC 4.45 (4.20-5.50) X10*6/uL Hgb 11.3 L (12.0-16.0) g/dl Hct 36.3 L (37.0-47.0) % MCV 81.6 (80.0-98.0) fL MCH 25.4 L (27.0-33.0) pg MCHC 31.1 (31.0-35.0) g/dl RDW 15.5 (11.0-16.0) % Plt Count 417 H (160-400) X10*3/uL MPV 9.2 L (9.4-12.3) fL Immature Gran % (Auto) 0.4 (0.0-0.4) % Neut % (Auto) 63.7 (45-73) % Lymph % (Auto) 28.0 (20-40) % [place] % (Auto) 5.4 (2-11) % Eos % (Auto) 1.8 (0-4) % Baso % (Auto) 0.7 (0-2) % Lymph # (Auto) 3.0 (1.2-4.9) X10*3/uL [place] # (Auto) 0.6 (0.1-1.2) X10*3/uL Eos # (Auto) 0.2 (0.0-0.4) X10*3/uL Baso # (Auto) 0.1 (0.0-0.2) X10*3/uL Abs Immat Gran (auto) 0.04 H (0.00-0.03) X10*3/uL Absolute Neuts (auto) 6.9 (2.0-8.3) x10*3/uL Absolute Nucleated RBC 0.000 (0.0-0.012) X10*3/uL Nucleated RBC % (auto) 0.0 (0.0-0.2) /100WBC Sodium 141 (135-145) mmol/L Potassium 4.1 (3.3-5.1) mmol/L Chloride 109 H (96-108) mmol/L Carbon Dioxide 24 (22-29) mmol/L Anion Gap 12 (12-20) BUN 14 (9-16) mg/dL Creatinine 0.62 (0.5-1.4) mg/dL Estim Creat Clear Calc 123.7 Estimated GFR > 60 Random Glucose 104 (60-115) mg/dL Calcium 9.4 D (8.4-10.2) mg/dL Total Bilirubin 0.2 (0.0-1.0) mg/dL AST 35 H (5-31) U/L ALT 51 H (0-31) U/L Alkaline Phosphatase 74 (39-117) U/L Total Protein 7.6 (6.5-8.0) g/dL Albumin 3.9 (3.5-5.0) g/dL Beta HCG, Quant < 2 mIU/mL Urine Color Yellow Urine Appearance Cloudy Urine pH 6.0 (5.0-9.0) Ur Specific [place] 1.025 (1.005-1.025) Urine Protein Negative (Neg-Trace) mg/dL Urine Glucose (UA) Negative (Negative) mg/dL Urine Ketones Negative (Negative) mg/dL Urine Blood Small (1+) H (Negative) Urine Nitrite Negative (Negative) Ur Leukocyte Esterase Negative (Negative) Urine RBC 11-20 H (0-2) /HPF Urine WBC 0-5 (0-5) /HPF Ur Squamous Epith Cells 11-20 (0-2) /HPF Urine Bacteria 1+ (None Seen) Hyaline Casts 0-2 (0-2) /LPF Urine Test NEGATIVE (NEGATIVE) Discharge Plan Discharge Clinical Impression: Mesenteric adenitis Patient Disposition: Home, Self-Care Instructions: Mesenteric Adenitis (ED) Additional Instructions: We did not find any findings of urinary tract infection, impairment to your kidney function and CT imaging showed no obstructing stones. You have findings of hepatic steatosis which is a fatty liver. This can be followed up with your primary care provider. Try to maintain a healthy, diverse diet and avoid fried foods or foods high in fat. CT imaging also showed some small stones in your kidneys but not in your ureters and this does not explain your pain today. The CT also shows findings of mesenteric adenitis which likely explains her pain. This usually resolves after a couple of weeks and you can continue ibuprofen and acetaminophen at home. If your pain worsens or you have abdominal swelling, fevers, persistent vomiting or any other acute changes or concerns, please return to the emergency department. Prescriptions: No Action benzonatate 100 mg capsule 100 mg PO TID PRN (Reason: cough) Qty: 14 0RF fluticasone propionate [Flonase Allergy Relief] 50 mcg/actuation spray,suspension 2 spray intranasal DAILY Qty: 16 0RF Rx Instructions: administer into each nostril Stand Alone Forms: Work/School Release Print Language: Senegalese
[2024-07-17 16:09] LABS: MANUAL DIFF FLAG NO
[2024-07-17 16:14] LABS: Basophils Absolute Auto 0.1 X10*3/uL (0.0-0.2); Basophils Percent Auto 0.7 % (0-2); Eosinophils Absolute Auto 0.2 X10*3/uL (0.0-0.4); Eosinophils Percent Auto 1.8 % (0-4); Hematocrit 36.3 % (37.0-47.0); Hemoglobin 11.3 g/dl (12.0-16.0); Imm Gran Abs Auto 0.04 X10*3/uL (0.00-0.03); Imm Gran Pct Auto 0.4 % (0.0-0.4); Mean Corpuscular HGB Conc 31.1 g/dl (31.0-35.0); Mean Corpuscular Hemoglobin 25.4 pg (27.0-33.0); Mean Corpuscular Volume 81.6 fL (80.0-98.0); Mean Platelet Volume 9.2 fL (9.4-12.3); Monocytes Absolute Auto 0.6 X10*3/uL (0.1-1.2); Monocytes Percent Auto 5.4 % (2-11); Neutrophils Absolute Auto 6.9 x10*3/uL (2.0-8.3); Neutrophils Percent Auto 63.7 % (45-73); Platelet Count 417 X10*3/uL (160-400); Red Blood Count 4.45 X10*6/uL (4.20-5.50); Red Cell Distribution Width 15.5 % (11.0-16.0); White Blood Count 10.9 X10*3/uL (4.8-10.8)
[2024-07-17 16:38] LABS: Appearance Urine Cloudy; Color Urine Yellow; Glucose Urine UA Negative (Negative); Leukocyte Esterase Urine Negative (Negative); Nitrite Urine Negative (Negative); Specific Gravity - Urine 1.025 (1.005-1.025); UMIC TRIGGER UACC YES; Urine Blood Small (1+) (Negative); Urine Ketones Negative (Negative); Urine Protein Negative (Neg-Trace)
[2024-07-17 16:39] LABS: UPreg QC Valid YES; Urine Pregnancy NEGATIVE (NEGATIVE)
[2024-07-17 16:40] LABS: Bacteria Urine 1+ (None Seen); Hyaline Casts Urine 0-2 /LPF (0-2); WBC Urine 0-5 /HPF (0-5)
[2024-07-17 16:49] LABS: Alanine Aminotransferase 51 U/L (0-31); Albumin Level 3.9 g/dL (3.5-5.0); Anion Gap 12 (12-20); Aspartate Amino Transferase 35 U/L (5-31); Bilirubin Total 0.2 mg/dL (0.0-1.0); Blood Urea Nitrogen 14 mg/dL (9-16); Calcium 9.4 mg/dL (8.4-10.2); Carbon Dioxide 24 mmol/L (22-29); Chloride 109 mmol/L (96-108); Creatinine Clr Calc Pharmacy 123.7; Estimated Glomerular Filt Rate > 60; Glucose Random 104 mg/dL (60-115); Potassium 4.1 mmol/L (3.3-5.1); Sodium 141 mmol/L (135-145); Total Protein 7.6 g/dL (6.5-8.0)
[2024-07-17 17:02] LABS: HCG Quantitative < 2 mIU/mL
[2024-07-17 17:23] LABS: Alkaline Phosphatase 74 U/L (39-117)
--- OUTSIDE RECORDS SUMMARY | 2024-07-17 19:47 | XMS_ITS | Clinical Summary ---
Author Organization [employer] Address [address] [place] [address] Care Team Providers [employer] Name Role Phone Unavailable Primary Care Provider Unavailabl e Allergies Active Allergy Reactions Criticality Noted Date Comments Codemarija Other 04/26/2015 Unable to void for 48 hours after taking it, this occurred after her tonsills were taken out as a small child Medications triamcinolone (Kenalog) 0.025 % cream Apply topically 2 times daily. to affected area Active ferrous sulfate 325 (65 Fe) MG tablet Take 325 mg by mouth Once per day. 4 Active famotidine (Pepcid) 20 MG tablet Take 20 mg by mouth 2 times daily. Active Docusate Sodium (DSS) 100 MG capsule Take 100 mg by mouth if needed at bedtime. 4 Active cetirizine (ZyrTEC) 10 MG tablet Take 10 mg by mouth Once per day. Active Active Problems No known active problems Immunizations Name Administration Dates Next Due Influenza, seasonal, injectable, preservative fr ee 02/24/2024 Social History Tobacco Use Types Packs/Day Years Used Date Smoking Tobacco: Never Smokeless Tobacco: Never Tobacco Cessation:Counseling Given: Not Answered Comments Unknown Sex and Gender Information Value Date Recorded Sex Assigned at Female 04/14/2022 10:39 AM EDT Legal Sex Female 10:39 AM EDT Gender Identity Female 04/14/2022 10:39 AM EDT Sexual Orientation Choose not to disclose 2021 10:39 AM EDT Plan of Treatment Health Maintenance Due Date Last Done Comments Depression Screening 1992 HIV Screening 1992 Lipid Panel 1992 SDOH Screening 1992 Alcohol/Substance Use Screening 2004 Family Planning (PISQ) 12/14/2007 Hepatitis C Screening 2010 Pap Smear 2013 Hepatitis B Vaccines (2 of 3 - 19+ 3-dose series) 06/26/2021 05/29/2021 Cervical Cancer Screening 2022 HPV/Cotest 2022 COVID-19 Vaccine ( season) 2024 06/21/2021, 10/16/2020, 09/18/2020 Tobacco Screening 03/10/2025 03/10/2024 DTaP/Tdap/Td Vaccines (2 - Td or Tdap) 11/27/2026 11/27/2016 Zoster Vaccines (1 of 2) 2042 RSV Patients and Patients Aged 60 years or older (1 - 1-dose 75+ series) 12/14/2067 Influenza Vaccine Completed 02/24/2024, , 03/04/2022, Additional history exists HIB Vaccines Aged Out No longer eligi ble based on patient's age to complete this topic HPV Vaccines Aged Out No longer eligi ble based on patient's age to complete this topic Hepatitis A Vaccines Aged Out No long er eligible based on patient's age to complete this topic IPV Vaccines Aged Out No longer eligi ble based on patient's age to complete this topic Meningococcal Vaccine Aged Out No ardha vance eligible based on patient's age to complete this topic Pneumococcal Vaccine: Pediatrics (0 to 5 Years) and At-Risk Patients (6 to 49) Years) Aged Out No longer eligible based on patient's age to complete this topic RSV under 20 months Aged Out No longe r eligible based on patient's age to complete this topic Rotavirus Vaccines Aged Out No longer eligible based on patient's age to complete this topic Insurance [facility]
--- OUTSIDE RECORDS SUMMARY | 2024-07-17 19:47 | XMS_ITS | Clinical Summary ---
Author Organization Patient Business Ser [facility] Address [address] [place] [address] Care Team Providers Care Oceanographic Meteorologist Name Role Phone Loren Morrissey MD Primary Care Prov ider Allergies Active Allergy Reactions Criticality Noted Date Comments Codeine Other 04/26/2015 Unable to void for 48 hours after taking it, this occurred after her tonsills were taken out as a small child Other 11/24/2018 Seasonal Medications Medication Sig Dispensed Refills Start Date End Date Status triamcinolone (KENALOG) 0.025 % cream APPLY TO AFFECTED AREA TWICE A DAY Active famotidine (PEPCID) 20 mg tablet TAKE 1 TABLET BY MOUTH TWICE A DAY Active ferrous sulfate 325 mg (65 mg elemental iron) tablet Take 1 Tablet by mouth daily. - Oral Active cetirizine (ZyrTEC) 10 mg tablet Take 1 Tablet by mouth daily. - Oral Active Active Problems Problem Noted Date Diagnosed Date History of pre-eclampsia in prior , currently 04/11/2024 Anxiety 04/11/2024 Obesity (BMI 30-39.9) 04/11/2024 Obesity affecting , antepartum 04/11/20 Previous delivery, antepartum Renal calculus, bilateral 04/11/2024 Umbilical hernia 04/11/2024 Encounters Date Type Department Care Team Description 05/16/2024 8:00 AM EST Office Visit Adult Medicine [address] [phone] Phillip, Zelda, PA Adult general medical examination (Primary Dx); Screening for tuberculosis; Screening for endocrine, metabolic and immunity disorder; Vagina itching from Last 3 Months Immunizations Name Administration Dates Next Due Hep B, Unspecified 05/29/2021 Influenza, Unspecified 05/01/2021,01/14/2016 MMR, measles mumps and rubel la Live (Priorix; M-M-R II) 12mo and older 06/12/2021 SARS-COV-2 (COVID-19) Vaccine, Unspecified 06/21,10/16/2020,09/18/2020 Tdap Tetanus diptheria acell ular pertussis (Boostrix; Adacel) 7yo and older 11/27/2016 Surgical History Surgery Date Site/Laterality Comments TONSILLECTOMY PROCEDURE: HISTORICAL TONSILLECTOMY SECTION 12/25/2016 PROCEDURE: HISTORICAL DELIVERY; COMMENT: FTP Medical History Medical History Date Comments Kidney stones DX:Kidney stones Pre-eclampsia 12/22/2016 DX:Pre-eclampsia Lung nodule < 6cm on CT 11/06/2017 DX:Lung nodule < 6cm on CT; COMMENT: Per Fleischner guidelines no further follow-up needed GDM (gestational diabetes mellitus) DX:GDM (gestational diabetes mellitus) Family History Medical History Relation Name Comments No Known Problems Brother No Known Problems Father Colon cancer Maternal Grandfather Prostate cancer Maternal Grandfather Arthritis Maternal Grandmother Arthritis Mother Colon cancer Other 1 unsure relative Pancreatic cancer Other 2 unsure rel ative Diabetes Paternal Grandmother No Known Problems Sister Breast cancer Neg Hx Cervical cancer Neg Hx Ovarian cancer Neg Hx Uterine cancer Neg Hx Relation Name Status Comments Brother Alive Father Alive Maternal Grandfather Alive Maternal Grandmother Alive Mother Alive Other 1 Other 2 Paternal Grandfather Alive Paternal Grandmother Alive Sister Alive Social History Tobacco Use Types Packs/Day Years Used Date Smoking Tobacco: Never Smokeless Tobacco: Never Tobacco Cessation:Counseling Given: Not Answered Alcohol Use Standard Drinks/Week Comments No 0 (1 standard drink = 0.6 oz pur e alcohol) Housing Instability Answer Date Recorde d Are you worried that in the next 2 months you may not have stable housing? No 07/15/2024 Food Access & Nutrition Answer Date Rec orded Do you have access to a vari ety of food including fruits and vegetables? Unable to respond 07/15/2024 Health Literacy Answer Date Recorded How often do you need to hav e someone help you when you read instructions, pamphlets, or other written material from your doctor or pharmacy? Never 07/15/2024 Caregiver: How often do you need to have someone help you when you read instructions, pamphlets, or other written material from your doctor or pharmacy? Not on file 07/15/2024 Financial Risk Answer Date Recorded How hard is it for you to pa y for the very basics like food, housing, medical care, and air conditioning / heating? Patient declined 07/15/2024 Transportation Answer Date Recorded Has the lack of transportati on kept you from meetings, work, or from getting things needed for daily living? No Has the lack of transportati on kept you from medical appointments or from getting medications? No 07/15/2024 Social Isolation Answer Date Recorded How often do you feel lonely or isolated from th ose around you? Rarely 07/15/2024 Food Risk Answer Date Recorded Within the past 12 months we worried whether our food would run out before we got money to buy more. Never true 07/15/2024 Within the past 12 months th e food we bought just didn't last and we didn't have money to get more. Never true 07/15/2024 Dependent Care Answer Date Recorded Do you need help finding or paying for care for your loved ones. For example, director child abuse therapy or elderly care for an older adult? No 07/15/2024 Employment and Income Answer Date Recor ded During the last four weeks, have you been actively looking for work? No 07/15/2024 Living Situation Answer Date Recorded What is your living situation? 0 07/15/2024 Sex and Gender Information Value Date Recorded Sex Assigned at Not on file Gender Identity Not on file Sexual Orientation Not on file Job Start Date Occupation Industry Not on file Not on file Not on file Obstetrics History Last Filed Vital Signs Vital Sign Reading Time Taken Comments Blood Pressure 109/81 05/16/2024 8:21 AM EST Pulse 96 05/16/2024 8:21 AM EST Temperature 35.9 ??C (96.7 ??F) 05/16/2024 8:21 AM ES T Respiratory Rate 14 05/16/2024 8:21 AM EST Oxygen Saturation - - Inhaled Oxygen Concentration - - Weight 72.9 kg (160 lb 12.8 oz) 05/16/2024 8:21 AM EST Height 154.9 cm (5' 1 ) 05/16/2024 8:21 AM EST Body Mass Index 30.38 05/16/2024 8:21 AM EST Plan of Treatment Upcoming Encounters Date Type Department Care Team (Late st Contact Info) Description 07/20/2024 11:30 AM EST Office Visit Adult [address] [phone] Zelda Fisher PA [address] [place] [address] 10/11/2024 3:00 PM EDT Office Visit [address] [address] Priscila Krishnamurthy PA [address] [place] [address] Health Maintenance Due Date Last Done Comments Hepatitis B Vaccines (2 of 3 - 19+ 3-dose series) 06/26/2021 05/29/2021 Cervical Cancer Screening: HPV 12/10/2023 12/09/2018 COVID-19 Vaccine ( season) 2024 06/21/2021, 10/16/2020, 09/18/2020 Depression Screening 07/15/2025 07/15/2024, 08/21/19 Social Influencers of Health Screening 07/15/2025 07/15/2024, 08/21/2023 DTaP,Tdap,and Td Vaccines (2 - Td or Tdap) 11/27/2026 11/27/2016 Cholesterol Screening (Lipid Panel) 05/18/2029 05/18/2024, 05/02/2021 Hepatitis C Screening Completed 06/02/2014 MMR Vaccines Aged Out 06/12/2021 No longer eligi ble based on patient's age to complete this topic HIV Screening Completed 09/05/2022 Influenza Vaccine Completed 02/24/2024, , 03/04/2022, Additional [...] patient's age to complete this topic Meningococcal ACWY Vaccine Aged Out N o longer eligible based on patient's age to complete this topic Pneumococcal Vaccine: Pediatrics (0 to 5 Years) and At-Risk Patients (6 to 64 Years) Aged Out No longer eligible based on patient's age to complete this topic RSV Immunization Patients Under 20 months Aged Out No longer eligible based on patient's age to complete this topic Varicella Vaccines Aged Out No longer eligible based on patient's age to complete this topic Procedures Procedure Name Priority Date/Time Associated Diagnosis Comments INTERFERON GAMMA INTERPRETATION Routine 05/18/2024 8:31 AM EST Adult general medical examination Screening for tuberculosis CBC WITH AUTO DIFFERENTIAL Routine 05/18/2024 8:31 AM EST Adult general medical examination INTERFERON GAMMA ANTIGEN 2 Routine 05/18/2024 8:31 AM EST Adult general medical examination Screening for tuberculosis INTERFERON GAMMA ANTIGEN 1 Routine 05/18/2024 8:31 AM EST Adult general medical examination Screening for tuberculosis INTERFERON GAMMA MITOGEN Routine 05/18/2024 8:31 AM EST Adult general medical examination Screening for tuberculosis INTERFERON GAMMA NIL Routine 05/18/2024 8:31 AM EST Adult general medical examination Screening for tuberculosis HEPATITIS B SURFACE ANTIBODY Routine 05/18/2024 8:31 AM EST Adult general medical examination Screening for endocrine, metabolic and immunity disorder IRON AND TIBC Routine 05/18/2024 8:31 AM EST Adult general medical examination FERRITIN Routine 05/18/2024 8:31 AM EST Adult general medical examination MUMPS ANTIBODY IGG Routine 05/18/2024 8: 31 AM EST Adult general medical examination Screening for endocrine, metabolic and immunity disorder RUBELLA ANTIBODY IGG Routine 05/18/2024 8:31 AM EST Adult general medical examination Screening for endocrine, metabolic and immunity disorder RUBEOLA ANTIBODY IGG Routine 05/18/2024 8:31 AM EST Adult general medical examination Screening for endocrine, metabolic and immunity disorder VARICELLA ZOSTER ANTIBODY IGG Routine 05/18/2024 8:31 AM EST Adult general medical examination Screening for endocrine, metabolic and immunity disorder LIPID PANEL WITH REFLEX TO DIRECT LDL Routine 05/18/2024 8:31 AM EST Adult general medical examination COMPREHENSIVE METABOLIC PANEL Routine 05/18/2024 8:31 AM EST Adult general medical examination CBC AND DIFFERENTIAL Routine 05/18/2024 8:31 AM EST Adult general medical examination INTERFERON GAMMA FOR TB, QUALITATIVE Routine 05/18/2024 8:31 AM EST Adult general medical examination Screening for tuberculosis HM DEPRESSION SCREENING Routine 08/21/2023 HIV SCREENING Routine 09/05/2022 HM HPV Routine 12/09/2018 HEPATITIS C SCREENING Routine 06/02/2014 from Last 3 Months or Most Recently Relevant to Health Maintenance Results * Interferon gamma interpretation (05/18/2024 8:31 AM EST) [facility] Quantiferon Plus Interpretation Negative Negative LAB CHEMISTRY METHOD 05/19/2024 10:39 AM EST [facility] Blood Venous blood specimen / Unknown Venipuncture / Unknown 05/18/2024 8:31 AM EST 05/18/2024 8:31 AM EST Zelda JENKINS LAB BLOOD ORDERABLES Performing Organization Address City/[facility]/ZIP Co de Phone Number [facility] [address] [place] [address], * Interferon gamma antigen 2 (05/18/2024 8:31 AM EST) Blood Venous blood specimen / Unknown Venipuncture / Unknown 05/18/2024 8:31 AM EST 05/18/2024 8:31 AM EST Zelda JENKINS LAB BLOOD ORDERABLES Performing Organization Address City/[facility]/ZIP Co de Phone Number [facility] [address] [place] [address], * Inteferon gamma antigen 1 (05/18/2024 8:31 AM EST) Blood Venous blood specimen / Unknown Venipuncture / Unknown 05/18/2024 8:31 AM EST 05/18/2024 8:31 AM EST Zelda JENKINS LAB BLOOD ORDERABLES Performing Organization Address City/[facility] Co de Phone Number [facility] [address] [place] [address], * Interferon gamma mitogen (05/18/2024 8:31 AM EST) Blood Venous blood specimen / Unknown Venipuncture / Unknown 05/18/2024 8:31 AM EST 05/18/2024 8:31 AM EST Zelda JENKINS LAB BLOOD ORDERABLES Performing Organization Address City/[facility]/ZIP Co de Phone Number [facility] [address] [place] [address], * Interferon gamma NIL (05/18/2024 8:31 AM EST) Blood Venous blood specimen / Unknown Venipuncture / Unknown 05/18/2024 8:31 AM EST 05/18/2024 8:31 AM EST Zelda JENKINS LAB BLOOD ORDERABLES [facility] [address] [place] [address], * Lipid panel with reflex to direct LDL (05/18/2024 8:31 AM EST) Cholesterol 152 0 - 200 mg/dL LAB CHEMISTRY METHOD 05/18/2024 10:40 AM EST [facility] Triglycerides 69 0 - 150 mg/dL LAB CHEMISTRY METHOD 05/18/2024 10:40 AM EST [facility] HDL 43 >=40 mg/dL LAB CHEMISTRY METHOD 05/18/2024 10:40 AM EST [facility] LDL Calculated 95 0 - 100 mg/dL LAB CHEMISTRY METHOD 05/18/2024 10:40 AM [facility] VLDL Cholesterol García 13.8 mg/dL LAB CHEMISTRY METHOD 05/18/2024 10:40 AM EST [facility] Non HDL Chol. (LDL+VLDL) 109 <145 mg/dL LAB CHEMISTRY METHOD 05/18/2024 10:40 AM [facility] Chol/HDL Ratio 3.5 0.0 - 4.4 LAB CHEMISTRY METHOD 05/18/2024 10:40 AM [facility] Blood Venous blood specimen / Unknown Venipuncture / Unknown 05/18/2024 8:31 AM EST 05/18/2024 8:31 AM EST Zelda JENKINS LAB BLOOD ORDERABLES [facility] [address] [place] [address], * (ABNORMAL) CBC auto differential (05/18/2024 8:31 AM EST) WBC 6.0 4.8 - 10.8 K/mcL LAB HEMETOLOGY METHOD 05/18/2024 10:23 AM [facility] RBC 4.60 3.80 - 4.80 M/mcL LAB HEMETOLOGY METHOD 05/18/2024 10:23 AM [facility] Hemoglobin 11.5 11.5 - 16.0 g/dL LAB HEMETOLOGY METHOD 05/18/2024 10:23 AM [facility] Hematocrit 37.6 35.0 - 47.0 % LAB HEMETOLOGY METHOD 05/18/2024 10:23 AM [facility] MCV 82.5 79.0 - 98.0 FL LAB HEMETOLOGY METHOD 05/18/2024 10:23 AM [facility] MCH 25.2(L) 27.0 - 32.0 pcg LAB HEMETOLOGY METHOD 05/18/2024 10:23 AM [facility] MCHC 30.6(L) 32.0 - 37.0 g/dL LAB HEMETOLOGY METHOD 05/18/2024 10:23 AM [facility] RDW 14.6 11.0 - 15.0 % LAB HEMETOLOGY METHOD 05/18/2024 10:23 AM [facility] Platelets 395 130 - 400 K/mcL LAB HEMETOLOGY METHOD 05/18/2024 10:23 AM [facility] MPV 9.6 7.0 - 11.0 FL LAB HEMETOLOGY METHOD 05/18/2024 10:23 AM [facility] NRBC 0.0 <1.0 % LAB HEMETOLOGY METHOD 05/18/2024 10:23 AM [facility] NRBC Absolute 0.00 <0.10 K/mcL LAB HEMETOLOGY METHOD 05/18/2024 10:23 AM [facility] Neutrophils Relative 59.0 % LAB HEMETOLOGY METHOD 05/18/2024 10:23 AM [facility] Lymphocytes Relative 30.8 % LAB HEMETOLOGY METHOD 05/18/2024 10:23 AM [facility] Monocytes Relative 6.5 % LAB HEMETOLOGY METHOD 05/18/2024 10:23 AM [facility] Eosinophils Relative 2.0 % LAB HEMETOLOGY METHOD 05/18/2024 10:23 AM [facility] Basophils Relative 1.2 % LAB HEMETOLOGY METHOD 05/18/2024 10:23 AM [facility] Immature Granulocytes Relative 0.5 % LAB HEMETOLOGY METHOD 05/18/2024 10:23 AM [facility] Neutrophils Absolute 3.55 1.50 - 7.00 K/mcL LAB HEMETOLOGY METHOD 05/18/2024 10:23 AM [facility] Lymphocytes Absolute 1.85 1.00 - 5.00 K/mcL LAB HEMETOLOGY METHOD 05/18/2024 10:23 AM [facility] Monocytes Absolute 0.39 0.20 - 1.00 K/mcL LAB HEMETOLOGY METHOD 05/18/2024 10:23 AM [facility] Eosinophils Absolute 0.12 0.00 - 0.50 K/mcL LAB HEMETOLOGY METHOD 05/18/2024 10:23 AM [facility] Basophils Absolute 0.07 0.00 - 0.20 K/mcL LAB HEMETOLOGY METHOD 05/18/2024 10:23 AM [facility] Immature Granulocytes Absolute 0.03 0.00 - 0.03 K/mcL LAB HEMETOLOGY METHOD 05/18/2024 10:23 AM [facility] Blood Venous blood specimen / Unknown Venipuncture / Unknown 05/18/2024 8:31 AM EST 05/18/2024 8:31 AM EST Zelda JENKINS LAB BLOOD ORDERABLES [facility] [address] [place] [address], [place] [phone] * (ABNORMAL) Iron and TIBC (05/18/2024 8:31 AM EST) [facility] Iron 103 40 - 150 mcg/dL LAB CHEMISTRY METHOD 05/18/2024 10:40 AM EST [facility] TIBC 460(H) 250 - 450 mcg/dL LAB CHEMISTRY METHOD 05/18/2024 10:40 AM EST [facility] Iron Saturation 22 15 - 50 % LAB CHEMISTRY METHOD 05/18/2024 10:40 AM EST [facility] Blood Venous blood specimen / Unknown Venipuncture / Unknown 05/18/2024 8:31 AM EST 05/18/2024 8:31 AM EST Zelda JENKINS LAB BLOOD ORDERABLES Performing Organization Address City/[facility]/ZIP Co de Phone Number [facility] [address] [place] [address], [place] [phone] * (ABNORMAL) Rubeola antibody IgG (05/18/2024 8:31 AM EST) [facility] Rubeola IgG Negative( A) Positive LAB CHEMISTRY METHOD 05/18/2024 12:34 PM EST [facility] Rubeola IgG Antibody, measured 12.70(L) >=16.50 AU/mL LAB CHEMISTRY METHOD 05/18/2024 12:34 PM EST [facility] Blood Venous blood specimen / Unknown Venipuncture / Unknown 05/18/2024 8:31 AM EST 05/18/2024 8:31 AM EST Narrative [facility] - 05/18/2024 12:34 PM EST Interpretation >=16.5 AU/ml is considered to be consistent with Immunity Zelda JENKINS LAB BLOOD ORDERABLES [facility] [address] [place] [address], * Rubella antibody IgG (05/18/2024 8:31 AM EST) Rubella IgG Quant 16.6 >=10.0 I Unit/mL LAB CHEMISTRY METHOD 05/18/2024 10:52 AM EST [facility] Rubella IgG Antibody Interp Positive Positive LAB CHEMISTRY METHOD 05/18/2024 10:52 AM EST [facility] Blood Venous blood specimen / Unknown Venipuncture / Unknown 05/18/2024 8:31 AM EST 05/18/2024 8:31 AM EST Zelda JENKINS LAB BLOOD ORDERABLES Performing Organization Address [facility] Co de Phone Number [facility] [address] [place] [address], * (ABNORMAL) Hepatitis B surface antibody (05/18/2024 8:31 AM EST) Pathologist [facility] Hepatitis B Surface Ab Positive (A) Negative LAB CHEMISTRY METHOD 05/18/2024 10:42 AM EST [facility] Hepatitis B Surface Ab Quantitative 12.0 mIU/mL LAB CHEMISTRY METHOD 05/18/2024 10:42 AM EST [facility] Blood Venous blood specimen / Unknown Venipuncture / Unknown 05/18/2024 8:31 AM EST 05/18/2024 8:31 AM EST Narrative [facility] - 05/18/2024 10:42 AM EST >=10 mIU/mL is considered to be consistent with immunity. Zelda JENKINS LAB BLOOD ORDERABLES Performing Organization Address [facility]/ZIP Co de Phone Number [facility] [address] [place] [address], * Varicella zoster antibody IgG (05/18/2024 8:31 AM EST) Varicella IgG Positive Positive LAB CHEMISTRY METHOD 05/18/2024 12:34 PM EST [facility] Varicella Zoster IgG 18.60 >=1.00 S/CO LAB CHEMISTRY METHOD 05/18/2024 12:34 PM EST [facility] Blood Venous blood specimen / Unknown Venipuncture / Unknown 05/18/2024 8:31 AM EST 05/18/2024 8:31 AM EST Narrative [facility] - 05/18/2024 12:34 PM EST Interpretation >= 1.00 S/CO is considered to be consistent with Immunity Zelda JENKINS LAB BLOOD ORDERABLES Performing Organization Address [facility] de Phone Number [facility] [address] [place] [address], * Mumps antibody IgG (05/18/2024 8:31 AM EST) Mumps IgG Positive Positive LAB CHEMISTRY METHOD 05/18/2024 12:34 PM EST [facility] Mumps IgG Antibody, measured 22.3 >=11.0 AU/mL LAB CHEMISTRY METHOD 05/18/2024 12:34 PM EST [facility] Blood Venous blood specimen / Unknown Venipuncture / Unknown 05/18/2024 8:31 AM EST 05/18/2024 8:31 AM EST Narrative [facility] - 05/18/2024 12:34 PM EST >=11 AU/mL is considered to be consistent with Immunity. Zelda JENKINS LAB BLOOD ORDERABLES Performing Organization Address [facility]/ZIP Co de Phone Number [facility] [address] [place] [address], * Ferritin (05/18/2024 8:31 AM EST) Pathologist [facility] Ferritin 13 8 - 252 ng/mL LAB CHEMISTRY METHOD 05/18/2024 10:40 AM [facility] Blood Venous blood specimen / Unknown Venipuncture / Unknown 05/18/2024 8:31 AM EST 05/18/2024 8:31 AM EST Zelda JENKINS LAB BLOOD ORDERABLES [facility] [address] [place] [address], * Comprehensive metabolic panel (05/18/2024 8:31 AM EST) [facility] Sodium 138 133 - 145 mmol/L LAB CHEMISTRY METHOD 05/18/2024 10:40 AM [facility] Potassium 4.1 3.5 - 5.5 mmol/L LAB CHEMISTRY METHOD 05/18/2024 10:40 AM [facility] Chloride 108 96 - 110 mmol/L LAB CHEMISTRY METHOD 05/18/2024 10:40 AM [facility] CO2 23 21 - 32 mmol/L LAB CHEMISTRY METHOD 05/18/2024 10:40 AM [facility] Anion Gap 7 3 - 11 LAB CHEMISTRY METHOD 05/18/2024 10:40 AM [facility] Glucose 73 70 - 100 mg/dL LAB CHEMISTRY METHOD 05/18/2024 10:40 AM [facility] BUN 19 5 - 25 mg/dL LAB CHEMISTRY METHOD 05/18/2024 10:40 AM [facility] Creatinine 0.55 0.50 - 1.10 mg/dL LAB CHEMISTRY METHOD 05/18/2024 10:40 AM [facility] eGFR 126 >=60 mL/min/1. 73m2 LAB CHEMISTRY METHOD 05/18/2024 10:40 AM [facility] Comment:Calculation based on the??Chronic Kidney Disease Epidemiology Collaboration (CKD-EPI) equation refit??without adjustment for race. BUN/Creatinine Ratio 34.5 LAB CHEMISTRY METHOD 05/18/2024 10:40 AM [facility] Calcium 8.9 8.5 - 10.5 mg/dL LAB CHEMISTRY METHOD 05/18/2024 10:40 AM [facility] AST (SGOT) 31 10 - 42 unit/L LAB CHEMISTRY METHOD 05/18/2024 10:40 AM [facility] ALT (SGPT) 46 10 - 60 unit/L LAB CHEMISTRY METHOD 05/18/2024 10:40 AM [facility] Alkaline Phosphatase 76 42 - 121 unit/L LAB CHEMISTRY METHOD 05/18/2024 10:40 AM [facility] Total Protein 7.4 6.0 - 8.0 g/dL LAB CHEMISTRY METHOD 05/18/2024 10:40 AM [facility] Albumin 3.8 3.2 - 5.0 g/dL LAB CHEMISTRY METHOD 05/18/2024 10:40 AM [facility] Total Bilirubin 0.7 0.0 - 1.4 mg/dL LAB CHEMISTRY METHOD 05/18/2024 10:40 AM [facility] Blood Venous blood specimen / Unknown Venipuncture / Unknown 05/18/2024 8:31 AM EST 05/18/2024 8:31 AM EST Zelda JENKINS LAB BLOOD ORDERABLES [facility] [address] [place] [address], * Depression Screening (08/21/2023) Depression Screening Abstracted Historical Provider MD JANICE BEASLEY E * HIV Screening (09/05/2022) HIV Screening Abstracted Historical Provider MD JANICE BEASLEY E * Cervical Cancer Screening: HPV (12/09/2018) [facility] Cervical Cancer Screening: HPV No interpretation , Abstracted Historical Provider MD JANICE BEASLEY * Hepatitis C Screening (06/02/2014) [facility] Hepatitis C Screening Abstracted Historical Provider MD JANICE BEASLEY from Last 3 Months or Most Recently Relevant to Health Maintenance Care Teams Oceanographic Meteorologist Relationship Specialty Start Date End Date Loren Morrissey MD PCP - General Internal Medicine 01/20/22
[2024-07-17] MEDS: Ketorolac Tromethamine 15 MG/ML VIAL IM (20:54)
[2024-07-17 20:59] VITALS: BP 120/82; PULSE 95; RESP 16; TEMP 36.7; O2SAT 100
== END 2024-07-17 21:00 | disposition home or self-care (01) ==
PROVIDERS: Physician Assistant; Emergency Provider Emergency Medicine; PCP Internal Medicine
DX: I88.0 Nonspecific mesenteric lymphadenitis (principal); R10.2 Pelvic and perineal pain; R30.0 Dysuria; R35.0 Frequency of micturition; Z79.899 Other long term (current) drug therapy
CPT/HCPCS: 36415; 74176; 80053; 81001; 81025; 84702; 85025; 96372; 99283; 99284; J1885

== ENCOUNTER → 2024-07-17 18:54 | Outpatient (BNV) | payer OTHER, SELFPAY | PROVIDERS: Emergency Provider Emergency Medicine; PCP Internal Medicine; Visit Provider Radiology Diagnostic Radiology | DX: N20.0 Calculus of kidney (principal); K76.0 Fatty (change of) liver, not elsewhere classified | CPT/HCPCS: 74176 ==

== ENCOUNTER 2025-01-31 20:35 | Emergency (ER) | payer OTHER, SELFPAY ==
[2025-01-31 21:11] VITALS: BP 105/64; PULSE 103; RESP 16; TEMP 36.1; O2SAT 97; BMI 28.3
--- OUTSIDE RECORDS SUMMARY | 2025-01-31 23:28 | XMS_ITS | Clinical Summary ---
Author Organization Patient Business Ser [facility] Address [address] [place] [address] Care Team Providers Care Founder And President Name Role Phone Loren Morrissey MD Primary Care Prov ider Allergies Active Allergy Reactions Criticality Noted Date Comments Codeine Other 04/26/2015 Unable to void for 48 hours after taking it, this occurred after her tonsills were taken out as a small child Other 11/24/2018 Seasonal Medications triamcinolone (KENALOG) 0.025 % cream APPLY TO [...] Active Problems Problem Noted Date Diagnosed Date Seasonal allergies 10/11/2024 Fatty liver 07/20/2024 History of pre-eclampsia 04/11/2024 Anxiety 04/11/2024 Obesity (BMI 30-39.9) 04/11/2024 Obesity affecting , antepartum 04/11/20 Previous delivery, antepartum Renal calculus, bilateral 04/11/2024 Umbilical hernia 04/11/2024 Encounters Date Type Department Care Team Description 01/05/2025 Telephone Adult Medicine [address] [phone] Loren Gudino MD Letter for School/Work 12/15/2024 9:00 AM EDT Clinical Support Adult [address] [phone] Need for prophylactic vaccination with nbuwmln-oezzd-wjaendk (MMR) vaccine 12/15/[address] [phone] Loren Gudino MD Forms/questionnaires 2024 Telephone Adult [address] [phone] Loren Gudino MD Immunizations 10/31/2024 2:18 PM EDT - 10/31/2024 11:59 PM EDT Hospital Encounter [facility] Ultrasound [address] [place] [phone] Abnormal breast exam Discharge Disposition: Home or Self Care 10/31/2024 1:43 PM EDT - 10/31/2024 11:59 PM EDT [facility] [address] [phone] Pruritus Discharge Disposition: Home or Self Care from Last 3 Months Immunizations Name Administration Dates Next Due Hep B, Unspecified 05/29/2021 Hepatitis B (Fmgfbgw-Y-Cdryx , Recombivax HB-Adult) 19yo and older 05/29/2021 Influenza Quadravalent, MDCK , 0.5ml, preservative free (Flucelvax) 6mo and older 03/05/2023,03/04/2022,05/01/2021 Influenza trivalent, 0.5mL, preservative free (Fluarix; FluLaval; Fluzone) ages 6mo and older (Afluria) 3 years and older 02/24/2024 Influenza trivalent, with pr eservative (Fluzone; Afluria) 6mo and older 08/29/2015 Influenza, Unspecified 05/01/2021,01/14/2016 MMR, measles mumps and rubel la Live (Priorix; M-M-R II) 12mo and older 12/15/2024,06/12/2021 Moderna SARS-CoV-2 COVID-19, mRNA, LNP-S, preservative free 06/21/2021,10/16/2020,09/18/2020 SARS-COV-2 (COVID-19) Vaccine, Unspecified 06/21,10/16/2020,09/18/2020 Tdap Tetanus diptheria acell ular pertussis (Boostrix; Adacel) 7yo and older 11/27/2016 Surgical History Surgery Date Site/Laterality Comments TONSILLECTOMY PROCEDURE: HISTORICAL TONSILLECTOMY SECTION 12/25/2016 PROCEDURE: HISTORICAL DELIVERY; COMMENT: FTP SECTION 06/17/2019 LIPOSUCTION 06/15/2022 - 06/14/2023 Abdominoplasty and tummy tuck with lipo in [place] Medical History Medical History Date Comments Kidney stones DX:Kidney stones Pre-eclampsia 12/22/2016 DX:Pre-eclampsia Lung nodule < 6cm on CT 11/06/2017 DX:Lung nodule < 6cm on CT; COMMENT: Per Fleischner guidelines no further follow-up needed GDM (gestational diabetes mellitus) DX:GDM (gestational diabetes mellitus) Family History Medical History Relation Name Comments No Known Problems Brother No Known Problems Daughter No Known Problems Father Colon cancer Maternal Grandfather Prostate cancer Maternal Grandfather Arthritis Maternal Grandmother Arthritis Mother Colon cancer Other 1 Maternal unsure relative Pancreatic cancer Other 2 Maternal unsure rel ative No Known Problems Paternal Grandfather Diabetes Paternal Grandmother No Known Problems Sister Asthma Son Breast cancer Neg Hx Cervical cancer Neg Hx Heart attack Neg Hx Ovarian cancer Neg Hx Stroke Neg Hx Uterine cancer Neg Hx Relation Name Status Comments Brother Alive Daughter Alive Father Alive Maternal Grandfather Alive Maternal Grandmother Alive Mother Alive Other 1 Maternal Other 2 Maternal Paternal Grandfather Alive Paternal Grandmother Alive Sister Alive Son Alive Social History Tobacco Use Types Packs/Day [...] care for your loved ones. For example, child welfare consultant or elderly care for an older adult? No 07/15/2024 Employment and Income Answer Date Recor ded During the last four weeks, have you been actively looking for work? No 07/15/2024 Living Situation Answer Date Recorded What is your living situation? 0 07/15/2024 Comments No Sex and Gender Information Value Date Recorded Sex Assigned at Not on file Legal Sex Female 9:56 AM EDT Gender Identity Not on file Sexual Orientation Not on file Obstetrics History Para Term AB IAB SAB Ectopic Multiple Livin g Live Births 2 Last Filed Vital Signs Vital Sign Reading Time Taken Comments Blood Pressure 114/78 12/15/2024 8:41 AM EDT Pulse 94 12/15/2024 8:41 AM EDT Temperature 36.4 C (97.5 F) 12/15/2024 8:41 AM EDT Respiratory Rate 14 10/11/2024 2:44 PM EDT Oxygen Saturation 99% 10/11/2024 2:44 PM EDT Inhaled Oxygen Concentration - - Weight 68.5 kg (151 lb) 12/15/2024 8:41 AM EDT Height 154.9 cm (5' 1 ) 12/15/2024 8:41 AM EDT Body Mass Index 28.53 12/15/2024 8:41 AM EDT Plan of Treatment Upcoming Encounters Date Type Department Care Team (Late st Contact Info) Description 10/16/2025 2:00 PM EDT Office Visit Adult Medicine [facility] [address] [place] [phone] Loren Morrissey MD [address] [place] [phone] Health Maintenance Due Date Last Done Comments Cervical Cancer Screening: Pap Smear 12/09/2021 12/09/2018, 12/09/2018, 12/09/2018 Influenza Vaccine (#1) 2025 , 03/05/2023, 03/04/2022, Additional history exists Social Influencers of Health Screening 07/15/2025 07/15/2024, 08/21/2023 DTaP,Tdap,and Td Vaccines (2 - Td or Tdap) 11/27/2026 11/27/2016 Cholesterol Screening (Lipid Panel) 10/17/2029 10/17/2024, 05/18/2024, 05/02/2021 Hepatitis B Vaccines Discontinued 05/29/2021, 05/29/20 COVID-19 Vaccine Discontinued 06/21/2021, 12/2021, 10/16/2020, Additional history exists Depression Screening Completed 07/15/2024, 08/21/19 HIV Screening Completed 10/17/2024, 09/05/2022 Hepatitis C Screening Completed 10/17/2024, 014 MMR Vaccines Aged Out 12/15/2024, 06/12/2021 No lo nger eligible based on patient's age to complete this topic HIB Vaccines Aged Out No longer eligi [...] patient's age to complete this topic Meningococcal B Vaccine Aged Out No l onger eligible based on patient's age to complete this topic Pneumococcal Vaccine: Pediatrics (0 to 5 Years) and At-Risk Patients (6 to 49 Years) Discontinued RSV Immunization Patients Under 20 months Aged Out No longer eligible based on patient's age to complete this topic Varicella Vaccines Aged Out No longer eligible based on patient's age to complete this topic Procedures Procedure Name Priority Date/Time Associated Diagnosis Comments POC , URINE DIAGNOSTIC Routine 12/15/2024 8:59 AM EDT Need for prophylactic vaccination with gwstknc-jmffm-lyqdgfx (MMR) vaccine MG MAMMO DIGITAL DIAGNOSTIC W DAE BILAT Routine 10/31/2024 3:09 PM EDT Pruritus US BREAST LIMITED BILAT Routine 10/31/2024 2:41 PM EDT Abnormal breast exam HEPATITIS C ANTIBODY Routine 10/17/2024 8:15 AM EDT Screen for STD (sexually transmitted disease) HIV 1, 2 ANTIBODY, P24 ANTIGEN WITH REFLEX TO DIFFERENTIATION Routine 10/17/2024 8:15 AM EDT Screen for STD (sexually transmitted disease) LIPID PANEL WITH REFLEX TO DIRECT LDL Routine 10/17/2024 8:15 AM EDT Screening for cardiovascular condition HM DEPRESSION SCREENING Routine 08/21/2023 PAP SMEAR Routine 12/09/2018 from Last 3 Months or Most Recently Relevant to Health Maintenance Results * POC , urine manually resulted (12/15/2024 8:59 AM EDT) HCG, Ur POC Negative Negative POC hCG Int QC Pass? Yes Yes Urine Urine specimen obtained by clean catch procedure / Unknown 12/15/2024 8:59 AM EDT Loren Morrissey MD POINT OF CARE TEST ENTER/EDIT ORDERABLES Final Result * MG Mammo Digital Diagnostic w Dae bilat (10/31/2024 3:09 PM EDT) Anatomical Region Laterality Modality Breast Bilateral Mammography 10/31/2024 2:37 PM EDT Impressions 10/31/2024 2:53 PM EDT No mammographic or sonographic evidence of malignancy. The patient should be managed on the basis of the clinical breast exam A negative mammogram in the presence of a clinically suspicious palpable abnormality does not preclude the possibility of malignancy or alter the indications for biopsy. ASSESSMENT: BI-RADS 1: NEGATIVE RECOMMENDATION(S): 1: Clinical correlation recommended BILATERAL [facility] [address], [address] -------- FINAL REPORT -------- Dictated By: Iron Newell Dictated Date: 10/31/2024 14:37 ET Assigned Physician: Iron Newell Reviewed and Electronically Signed By: Iron Newell Signed Date: 10/31/2024 14:53 ET Workstation ID: [id number] Transcribed By: Self Edit Transcribed Date: 10/31/2024 14:37 ET Narrative 10/31/2024 2:53 PM EDT EXAM: DIAGNOSTIC MAMMOGRAPHY, BILATERAL ULTRASOUND: DIAGNOSTIC ULTRASOUND, BILATERAL HISTORY: Abnormal clinical breast exam. The patient reports developing intermittent episodes of whitish discharge from small skin lesions on the areola bilaterally. No pus, fever or redness at the time of the exam. COMPARISON: Initial exam TECHNIQUE: Synthesized CC and MLO projections of each breast. Tomosynthesis of each breast in the CC and MLO projections. ADDITIONAL IMAGING: Additional spot compression of the left breast using Tomosynthesis. High-frequency linear transducer ultrasound of each breast targeted to the areas of clinical concern. Computer-aided detection was employed with the [employer] AI 3-D. TISSUE DENSITY: The breasts are heterogeneously dense, which may obscure small masses. (BI-RADS category C) FINDINGS: MAMMOGRAPHY: RIGHT BREAST: No suspicious mass. No suspicious calcification. No distortion. No suspicious findings in the area of clinical concern. LEFT BREAST: No suspicious mass. No suspicious calcification. No distortion. No suspicious findings in the area of clinical concern. ULTRASOUND: RIGHT BREAST Region of the areola, area of concern No suspicious mass or collection. No suspicious area of altered echotexture. This area should be managed on the basis of the clinical breast exam LEFT BREAST Region of the areola, area of concern No suspicious mass or collection. No suspicious area of altered echotexture. This area should be managed on the basis of the clinical breast exam Procedure Note Iron Newell MD - 10/31/2024 EXAM: DIAGNOSTIC MAMMOGRAPHY, BILATERAL ULTRASOUND: DIAGNOSTIC ULTRASOUND, BILATERAL HISTORY: Abnormal clinical breast exam. The patient reports developingintermittent episodes of whitish discharge from small skin lesions on theareola bilaterally. No pus, fever or redness at the time of the exam. COMPARISON: Initial exam TECHNIQUE: Synthesized CC and MLO projections of each breast.Tomosynthesis of each breast in the CC and MLO projections. ADDITIONAL IMAGING: Additional spot compression of the left breast usingTomosynthesis. High-frequency linear transducer ultrasound of each breast targeted to theareas of clinical concern. Computer-aided detection was employed with the [employer] AI 3-D. TISSUE DENSITY: The breasts are heterogeneously dense, which may obscuresmall masses. (BI-RADS category C) FINDINGS: MAMMOGRAPHY: RIGHT BREAST: No suspicious mass. No suspicious calcification. No distortion. Nosuspicious findings in the area of clinical concern. LEFT BREAST: No suspicious mass. No suspicious calcification. No distortion. Nosuspicious findings in the area of clinical concern. ULTRASOUND: RIGHT BREAST Region of the areola, area of concern No suspicious mass or collection. No suspicious area of alteredechotexture. This area should be managed on the basis of the clinical breast exam LEFT BREAST Region of the areola, area of concern No suspicious mass or collection. No suspicious area of alteredechotexture. This area should be managed on the basis of the clinical breast exam IMPRESSION: No mammographic or sonographic evidence of malignancy. The patient should be managed on the basis of the clinical breast exam A negative mammogram in the presence of a clinically suspicious palpableabnormality does not preclude the possibility of malignancy or alter theindications for biopsy. ASSESSMENT: BI-RADS 1: NEGATIVE RECOMMENDATION(S): 1: Clinical correlation recommended BILATERAL [facility]amm[facility] location: [facility] [address], [id number] -------- FINAL REPORT -------- Dictated By: Iron Newell Dictated Date: 10/31/2024 14:37 ET Assigned Physician: Iron Newell Reviewed and Electronically Signed By: Iron Newell Signed Date: 10/31/2024 14:53 ET Workstation ID: [id number] Transcribed By: Self Edit Transcribed Date: 10/31/2024 14:37 ET us Priscila JENKINS IMG BI PROCEDURES Final Result * US Breast Limited bilat (10/31/2024 2:41 PM EDT) Anatomical Region Laterality Modality Breast Bilateral Ultrasound 10/31/2024 2:37 PM EDT Impressions 10/31/2024 2:53 PM EDT No mammographic or sonographic evidence of malignancy. The patient should be managed on the basis of the clinical breast exam A negative mammogram in the presence of a clinically suspicious palpable abnormality does not preclude the possibility of malignancy or alter the indications for biopsy. ASSESSMENT: BI-RADS 1: NEGATIVE RECOMMENDATION(S): 1: Clinical correlation recommended BILATERAL [facility]ammography location: [facility] at [address], [address] -------- FINAL REPORT -------- Dictated By: Iron Newell Dictated Date: 10/31/2024 14:37 ET Assigned Physician: Iron Newell Reviewed and Electronically Signed By: Iron Newell Signed Date: 10/31/2024 14:53 ET Workstation ID: [id number] Transcribed By: Self Edit Transcribed Date: 10/31/2024 14:37 ET Narrative 10/31/2024 2:53 PM EDT EXAM: DIAGNOSTIC MAMMOGRAPHY, BILATERAL ULTRASOUND: DIAGNOSTIC ULTRASOUND, BILATERAL HISTORY: Abnormal clinical breast exam. The patient reports developing intermittent episodes of whitish discharge from small skin lesions on the areola bilaterally. No pus, fever or redness at the time of the exam. COMPARISON: Initial exam TECHNIQUE: Synthesized CC and MLO projections of each breast. Tomosynthesis of each breast in the CC and MLO projections. ADDITIONAL IMAGING: Additional spot compression of the left breast using Tomosynthesis. High-frequency linear transducer ultrasound of each breast targeted to the areas of clinical concern. Computer-aided detection was employed with the [employer] 3-D. TISSUE DENSITY: The breasts are heterogeneously dense, which may obscure small masses. (BI-RADS category C) FINDINGS: MAMMOGRAPHY: RIGHT BREAST: No suspicious mass. No suspicious calcification. No distortion. No suspicious findings in the area of clinical concern. LEFT BREAST: No suspicious mass. No suspicious calcification. No distortion. No suspicious findings in the area of clinical concern. ULTRASOUND: RIGHT BREAST Region of the areola, area of concern No suspicious mass or collection. No suspicious area of altered echotexture. This area should be managed on the basis of the clinical breast exam LEFT BREAST Region of the areola, area of concern No suspicious mass or collection. No suspicious area of altered echotexture. This area should be managed on the basis of the clinical breast exam Procedure Note Iron Newell MD - 10/31/2024 EXAM: DIAGNOSTIC MAMMOGRAPHY, BILATERAL ULTRASOUND: DIAGNOSTIC ULTRASOUND, BILATERAL HISTORY: Abnormal clinical breast exam. The patient reports developingintermittent episodes of whitish discharge from small skin lesions on theareola bilaterally. No pus, fever or redness at the time of the exam. COMPARISON: Initial exam TECHNIQUE: Synthesized CC and MLO projections of each breast.Tomosynthesis of each breast in the CC and MLO projections. ADDITIONAL IMAGING: Additional spot compression of the left breast usingTomosynthesis. High-frequency linear transducer ultrasound of each breast targeted to theareas of clinical concern. Computer-aided detection was employed with the [employer] AI 3-D. TISSUE DENSITY: The breasts are heterogeneously dense, which may obscuresmall masses. (BI-RADS category C) FINDINGS: MAMMOGRAPHY: RIGHT BREAST: No suspicious mass. No suspicious calcification. No distortion. Nosuspicious findings in the area of clinical concern. LEFT BREAST: No suspicious mass. No suspicious calcification. No distortion. Nosuspicious findings in the area of clinical concern. ULTRASOUND: RIGHT BREAST Region of the areola, area of concern No suspicious mass or collection. No suspicious area of alteredechotexture. This area should be managed on the basis of the clinical breast exam LEFT BREAST Region of the areola, area of concern No suspicious mass or collection. No suspicious area of alteredechotexture. This area should be managed on the basis of the clinical breast exam IMPRESSION: No mammographic or sonographic evidence of malignancy. The patient should be managed on the basis of the clinical breast exam A negative mammogram in the presence of a clinically suspicious palpableabnormality does not preclude the possibility of malignancy or alter theindications for biopsy. ASSESSMENT: BI-RADS 1: NEGATIVE RECOMMENDATION(S): 1: Clinical correlation recommended BILATERAL [facility]amm[facility] location[facility] [address], [address] -------- FINAL REPORT -------- Dictated By: Iron Newell Dictated Date: 10/31/2024 14:37 ET Assigned Physician: Iron Newell Reviewed and Electronically Signed By: Iron Newell Signed Date: 10/31/2024 14:53 ET Workstation ID: [id number] Transcribed By: Self Edit Transcribed Date: 10/31/2024 14:37 ET us Priscila JENKINS [facility] US PROCEDURES Final Result * Hepatitis C antibody (10/17/2024 8:15 AM EDT) Hepatitis C Antibody Negative Negative LAB CHEMISTRY METHOD 10/17/2024 12:28 PM EDT [facility] Blood Venous blood specimen / Unknown Venipuncture / Unknown 10/17/2024 8:15 AM EDT 10/17/2024 8:15 AM EDT Priscila JENKINS LAB BLOOD ORDERABLES Final Resu lt Performing Organization Address [facility]/ZIP Co de Phone Number [facility] [address] [place] [address], [place] [phone] * HIV 1,2 antibody, p24 antigen with reflex to differentiation (10/17/2024 8:15 AM EDT) [facility] HIV Combo AB/AG Negative Negative LAB CHEMISTRY METHOD 10/17/2024 12:28 PM EDT [facility] Blood Venous blood specimen / Unknown Venipuncture / Unknown 10/17/2024 8:15 AM EDT 10/17/2024 8:15 AM EDT Narrative [facility] - 10/17/2024 12:28 PM EDT This assay is a 4th generation assay allowing for earlier detection of HIV infection by detecting the presence of the HIV-1 p24 antigen as well as the traditional antibodies to HIV type 1 (including group O) and type 2. Use of a 4th generation assay is the current CDC recommendation for HIV screening. Priscila JENKINS LAB BLOOD ORDERABLES Final Resu lt Performing Organization Address [facility]/ZIP Co de Phone Number [facility] [address] [place] [address], [place] [phone] * (ABNORMAL) Lipid panel with reflex to direct LDL (10/17/2024 8:15 AM EDT) [facility] Cholesterol 120 0 - 200 mg/dL LAB CHEMISTRY METHOD 10/17/2024 11:14 AM EDT [facility] Triglycerides 82 0 - 150 mg/dL LAB CHEMISTRY METHOD 10/17/2024 11:14 AM EDT [facility] HDL 35(L) >=40 mg/dL LAB CHEMISTRY METHOD 10/17/2024 11:14 AM EDT [facility] LDL Calculated 69 0 - 100 mg/dL LAB CHEMISTRY METHOD 10/17/2024 11:14 AM EDT [facility] VLDL Cholesterol García 16.4 mg/dL LAB CHEMISTRY METHOD 10/17/2024 11:14 AM EDT [facility] Non HDL Chol. (LDL+VLDL) 85 <145 mg/dL LAB CHEMISTRY METHOD 10/17/2024 11:14 AM EDT [facility] Chol/HDL Ratio 3.4 0.0 - 4.4 LAB CHEMISTRY METHOD 10/17/2024 11:14 AM EDT [facility] Blood Venous blood specimen / Unknown Venipuncture / Unknown 10/17/2024 8:15 AM EDT 10/17/2024 8:15 AM EDT Priscila JENKINS LAB BLOOD ORDERABLES Final Resu lt Performing Organization Address [facility]/ZIP Co de Phone Number [facility] [address] [place] [address], * Depression Screening (08/21/2023) Depression Screening Abstracted Historical Provider HEALTH MAINTENANCE Final Result * Pap smear (12/09/2018) 12/09/2018 Narrative HISTORICAL TESTING LAB RESULTING AGENCY - 12/14/2018 2:16 PM EDT [id number] THINPREP PAP, IMAGED: NEGATIVE FOR SQUAMOUS INTRAEPITHELIAL LESION AND MALIGNANCY . JOSE A WOOTEN(ASCP) (CASE ELECTRONICALLY SIGNED 12 14 2018) ADEQUACY: SATISFACTORY ENDOCERVICAL/TRANSFORMATION ZONE COMPONENT ABSENT. SOURCE: THINPREP PAP HPV IF ASCUS, CERVICAL, IMAGED CLINICAL INFORMATION: HPV IF DIAGNOSIS OF ASCUS. , PAP HX NEG, Z12.4 Kellie Hernandez MD LAB CYTOLOGY ORDERABLES Final Result HISTORICAL TESTING LAB RESULTING AGENCY from Last 3 Months or Most Recently Relevant to Health Maintenance Insurance [facility] Care Teams Founder And President Relationship Specialty Start Date End Date Loren Morrissey MD [address] [place] [phone] PCP - General Internal Medicine 01/20/22
== END 2025-01-31 23:29 | disposition left against medical advice (07) ==
PROVIDERS: Emergency Provider Emergency Medicine; PCP Nurse Practitioner Family
DX: R30.0 Dysuria (principal); Z53.21 Procedure and treatment not carried out due to patient leaving prior to being seen by health care provider
CPT/HCPCS: 99281